=== PATIENT | female | born 1965 | race Caucasian/White ===

== ENCOUNTER → 2019-07-06 15:42 | Outpatient (CLI) | payer OTHER, BC, SELFPAY ==
--- NOTE | ~2019-07-06 | MM_ITS ---
EXAMINATION: MM screening emery BI w mayela HISTORY: Screening mammogram, family history of breast cancer in her mother. TECHNIQUE: Craniocaudal and mediolateral oblique 3-D tomosynthesis images were obtained and synthetic 2-D images were generated. CAD analysis was submitted and interpreted. COMPARISON: 06/03/2018, 10/29/2017, 06/02/2017, 05/15/2017, 05/14/2016, 05/02/2016 BREAST PARENCHYMAL COMPOSITION: There are scattered areas of fibroglandular density. FINDINGS: RIGHT BREAST: There is possible architectural distortion in the subareolar aspect of the right breast . A right breast cyst is again noted which has decreased in size. LEFT BREAST: There is no evidence of suspicious mass, calcification, or architectural distortion to s uggest malignancy. There has been no significant interval change. IMPRESSION: 1. Possible architectural distortion of the right breast. 2. Additional mammographic views and possible breast ultrasound are recommended. BI-RADS Category 0: Incomplete: Needs additional imaging evaluation. Reviewed, dictated and finalized at location A. IMPRESSION: 1. Possible architectural distortion of the right breast. 2. Additional mammographic views and possible breast ultrasound are recommended . BI-RADS Category 0: Incomplete: Needs additional imaging evaluation.
--- NOTE | ~2019-07-06 | DEXA_ITS ---
Bone Density Report Name: Samantha Proctor Age: 54 Sex: Female Ethnicity: White Date of : 1965 Indication: postmenopausal; screening for osteoporosis; height loss; Referring Provider: SAMIR, ALEX Study: Bone densitometry was performed. Exam Date: July 06, 2019 Accession number: [id number] Bone Density: Region BMD T-score Z-score Classification AP Spine (L1-L4) 1.197 1.4 2.4 Normal Femoral Neck (Left) 0.828 -0.2 0.8 Normal Total Hip (Left) 0.995 0.4 1.1 Normal Femoral Neck (Right) 0.787 -0.6 0.4 Normal Total Hip (Right) 0.994 0.4 1.1 Normal Total Hip Mean 0.995 0.4 1.1 Normal World Health Organization criteria for BMD impression classify patients as: Normal (T-score at or above -1.0), Osteopenia (T-score between -1.0 and -2.5), or Osteoporosis (T-score at or below -2.5). 10-year Fracture Risk: FRAX not reported because: All T-scores for Spine Total, Hip Total, Femoral Neck at or above -1.0 Clinical Information Provided by Patient: Has used the following medications: Vitamin D, Calcium Patient maximum height was 67 Menopause Age: 52 No regular weight bearing exercise Does not regularly consume dairy products Drinks caffeinated beverages Onset of menses at age 13 Number of children 1 Impression: The patient has normal bone mass. Discussion: BONE DENSITY IS ABOVE THE MINIMUM DESIRABLE LEVEL AT ALL SKELETAL SITES TESTED. This patient?s bone mineral density is above the minimum desirable level (T-score -1.0 or better) at all sites measured. The patient should follow a healthful lifestyle (good nutrition with adequate calcium and vitamin D, and appropriate weight-bearing exercise). Follow-Up: Consider repeating this study in 5 years or sooner if there is some new clinical indication. Reported by: BHAVNA on 07/06/2019 4:18:00 PM. Reviewed, dictated and finalized at location ARaghavendra GARCES
== END ==
PROVIDERS: PCP Family Medicine; Visit Provider Nurse Practitioner
DX: Z12.31 Encounter for screening mammogram for malignant neoplasm of breast (principal); Z78.0 Asymptomatic menopausal state; R92.8 Other abnormal and inconclusive findings on diagnostic imaging of breast
CPT/HCPCS: 77063; 77067; 77080

== ENCOUNTER 2019-07-22 11:35 | Outpatient (CLI) | payer OTHER, BC, SELFPAY ==
--- NOTE | ~2019-07-22 | MM_ITS ---
EXAMINATION: MM diagnostic mammo unilat RT HISTORY: Possible right breast architectural distortion on screening mammogram TECHNIQUE: Additional 3-D tomosynthesis images of the right breast were performed and synthetic 2-D i mages were generated. CAD analysis was submitted and interpreted. COMPARISON: 07/06/2019, 06/03/2018,05/15/2017 FINDINGS: No architectural distortion is identified with spot compression of the right breast. There is no suspicious mass, calcification, or architectural distortion. IMPRESSION: 1. No mammographic evidence of malignancy. 2. Recommend routine screening mammography in one year. BI-RADS Category 1: Negative Reviewed, dictated and finalized at location A.
== END 2019-07-22 11:36 | disposition home or self-care (01) ==
LOC: ANHIMG 11:38
PROVIDERS: PCP Family Medicine; Visit Provider Obstetrics & Gynecology Gynecology
DX: R92.8 Other abnormal and inconclusive findings on diagnostic imaging of breast (principal)
CPT/HCPCS: 77065

== ENCOUNTER → 2020-09-20 17:27 | Outpatient (CLI) | payer OTHER, BC, SELFPAY ==
--- NOTE | ~2020-09-20 | MM_ITS ---
EXAMINATION: MM screening emery BI w mayela HISTORY: Screening mammogram TECHNIQUE: Craniocaudal and mediolateral oblique 3-D tomosynthesis images were obtained and synthetic 2-D images were generated. CAD analysis was submitted and interpreted. COMPARISON: 07/22/2019 diagnostic right mammogram 07/06/2019, 06/03/2018, 05/15/2017 bilateral digital screening mammogram examinations 10/29/2017 and 06/02/2017 diagnostic left mammogram and limited left breast ultrasound examinations BREAST PARENCHYMAL COMPOSITION: FINDINGS: Right breast: Stable circumscribed approximately 6 mm mass situated posteriorly in the outer mid right breast, not significantly changed since 05/15/2017. Possible new 7.5 mm mass in the lower mid right breast (craniocaudal Tomosynthesis image 17/56). Diag nostic right mammogram and right breast ultrasound examination are recommended. Left breast: There is no evidence of suspicious mass, calcification, or architectural distortion to suggest malig madonna in either breast. There has been no suspicious interval change. IMPRESSION: 1. Possible new 7.5 mm right breast mass 2. Diagnostic right mammogram and right breast ultrasound examination are recommended. BI-RADS Category 0: Incomplete: Needs additional imaging evaluation. Reviewed, dictated and finalized at location A. IMPRESSION: 1. Possible new 7.5 mm right breast mass 2. Diagnostic right mammogram and right breast ultrasound examination are recom mended. BI-RADS Category 0: Incomplete: Needs additional imaging evaluation.
== END ==
PROVIDERS: Visit Provider Nurse Practitioner
DX: Z12.31 Encounter for screening mammogram for malignant neoplasm of breast (principal); R92.8 Other abnormal and inconclusive findings on diagnostic imaging of breast
CPT/HCPCS: 77063; 77067

== ENCOUNTER → 2020-09-29 07:41 | Outpatient (CLI) | payer OTHER, BC, SELFPAY ==
--- NOTE | ~2020-09-29 | MMUS_ITS ---
EXAMINATION: MM diagnostic mammo unilat RT, US breast RT complete HISTORY: Follow-up left breast asymmetry TECHNIQUE: Additional 3-D tomosynthesis images of the left breast were performed and synthetic 2-D im ages were generated. CAD analysis was submitted and interpreted. High resolution complete left breast ultrasound was performed. COMPARISON: 09/20/2020 BREAST PARENCHYMAL COMPOSITION: BREAST PARENCHYMAL COMPOSITION: There are scattered areas of fibroglandular density. FINDINGS: MAMMOGRAPHIC FINDINGS: There is a small mass in the mid outer quadrant of the right breast with central lucency measuring 4 mm. In there is focal nodular asymmetry upper aspect of the right breast anteriorly on spot MLO view, not well seen on CC view. Visualized ULTRASOUND: Right breast ultrasound complete: At 12:00, 4 cm from the nipple, there is a cluster of microcysts me asuring 6 mm aggregate, likely corresponding to the mammographic finding. At 8:00, 5 cm from the nipp le, there is a 4 mm cyst responding to the smaller lesion seen on mammography. No suspicious masses t o suggest malignancy. IMPRESSION: 1. No evidence for malignancy in the right breast. Benign findings. 2. Routine yearly screening mammogram and regular clinical breast examination are recommended. BI-RADS Category 2: Benign finding(s). Reviewed, dictated and finalized at location A. IMPRESSION: 1. No evidence for malignancy in the right breast. Benign findings. 2. Routine yearly screening mammogram and regular clinical breast examination a re recommended. BI-RADS Category 2: Benign finding(s).
== END ==
PROVIDERS: PCP Family Medicine; Visit Provider Obstetrics & Gynecology Gynecology
DX: R92.8 Other abnormal and inconclusive findings on diagnostic imaging of breast (principal)
CPT/HCPCS: 76641; 77065

== ENCOUNTER → 2021-12-25 13:58 | Outpatient (CLI) | payer OTHER, BC, SELFPAY ==
--- NOTE | ~2021-12-25 | MM_ITS ---
EXAMINATION: MM screening emery BI w mayela HISTORY: Screening mammogram TECHNIQUE: Craniocaudal and mediolateral oblique 3-D tomosynthesis images were obtained and synthetic 2-D images were generated. CAD analysis was submitted and interpreted. COMPARISON: 09/29/2020 diagnostic right mammogram and complete right breast ultrasound examination 09/20/2020 bilateral screening mammogram / diagnostic right mammogram /09/2019, 06/03/2018 bilateral screening mammogram BREAST PARENCHYMAL COMPOSITION: There are scattered areas of fibroglandular density. FINDINGS: Stable circumscribed 3.5 mm rounded benign-appearing opacity with halo sign in the posterio r outer mid right breast There is no evidence of suspicious mass, calcification, or architectural dis tortion to suggest malignancy in either breast. There has been no suspicious interval change. IMPRESSION: 1. No mammographic evidence of malignancy. 2. Recommend routine screening mammography in one year. BI-RADS Category 2: Benign finding(s). Reviewed, dictated and finalized at location A.
== END ==
PROVIDERS: PCP Family Medicine; Visit Provider Nurse Practitioner
DX: Z12.31 Encounter for screening mammogram for malignant neoplasm of breast (principal)
CPT/HCPCS: 77063; 77067

== ENCOUNTER → 2022-03-04 13:46 | Outpatient (CLI) | payer OTHER, BC, SELFPAY ==
--- NOTE | ~2022-03-04 | XR_ITS ---
XR shoulder RT min 2V DATE: 03/04/2022 14:07 INDICATION: Right shoulder pain TECHNIQUE: 4 views COMPARISON: None FINDINGS: There is mild degenerative change at the right acromion clavicular joint, with slight infer ior spurring. No fracture or dislocation, periosteal reaction or bone destruction or abnormal soft tissue calcifica tion of the right shoulder is detected. IMPRESSION: Mild degenerative change at right acromioclavicular joint Reviewed, dictated and finalized at location B. NG MACHINE FEEDER
== END ==
PROVIDERS: PCP Family Medicine; Visit Provider Physician Assistant
DX: M19.011 Primary osteoarthritis, right shoulder (principal)
CPT/HCPCS: 73030

== ENCOUNTER 2022-04-05 12:51 | Outpatient (CLI) | payer OTHER, BC, SELFPAY ==
--- NOTE | ~2022-04-05 | XR_ITS ---
EXAMINATION: XR lg joint inject/asp w image DATE: 04/05/2022 13:43 INDICATION: Right shoulder pain. TECHNIQUE: A time-out was performed to verify the patient's name, date of , and procedure to b e performed. The procedure including the risks, benefits, and alternatives was discussed with the pat ient. Risks discussed included bleeding and infection. The patient understood the risks and agreed to proceed. The skin overlying the right glenohumeral joint was prepped and draped in usual sterile fa shion. Anesthetic was administered with 1% lidocaine subcutaneously. A 22 G needle was advanced und er fluoroscopic guidance into the joint. Injection of 1 mL of Omnipaque 240 confirmed intra-articula r position of the needle. Subsequently, injectate consisting of 1 mL 40 mg/mL triamcinolone and 3 mL 1% lidocaine was instilled. The needle was removed and the entry site was cleaned and dressed. The re were no immediate complications. Fluoroscopy exposure time was 0.1 minutes. The total number of im ages was 2. FINDINGS: Real-time fluoroscopy demonstrates the needle in the right glenohumeral joint. Patient's pa in prior to procedure:05/10. Patient's pain following the procedure: 04/09. IMPRESSION: 1. Fluoroscopy guided right glenohumeral joint injection of local anesthetic and steroid with decreas e in the patient's presenting pain. Reviewed, dictated and finalized at location A. ATRIC NP IMPRESSION: 1. Fluoroscopy guided right glenohumeral joint injection of local anesthetic an d steroid with decrease in the patient's presenting pain.
== END 2022-04-05 12:52 | disposition home or self-care (01) ==
PROVIDERS: PCP Family Medicine; Visit Provider Physician Assistant
DX: M25.511 Pain in right shoulder (principal)
CPT/HCPCS: 20610; 77002; J3301; Q9966

== ENCOUNTER 2022-06-01 09:54 | Outpatient (CLI) | payer OTHER, BC, SELFPAY ==
--- NOTE | ~2022-06-01 | MR_ITS ---
EXAMINATION: MR shoulder RT wo con DATE: 06/01/2022 10:35 INDICATION: Right shoulder pain. TECHNIQUE: Magnetic resonance imaging (MRI) of the right shoulder was performed without intravenous c ontrast. Sequences included axial PD-weighted FS FSE, coronal oblique PD-weighted FS FSE and T2-weigh tim FS FSE, and sagittal oblique T2-weighted FS FSE and T1-weighted FSE. COMPARISON: Right shoulder radiographs 03/04/2022 FINDINGS: Coracoacromial arch: The acromion undersurface is flat in morphology (type I). There is severe osteoarthritis of acromiocl avicular joint including inferiorly directed osteophytes. There is mild subacromial/subdeltoid bursit is. Rotator cuff: There is moderate supraspinatus and infraspinatus tendinopathy. Teres minor tendon is normal. There i s mild subscapularis tendinopathy. No tear. There is no fatty atrophy of the rotator cuff muscle house ies. Biceps tendon and glenoid labrum: Biceps tendon is in bicipital groove. Intra-articular biceps tendon is normal. There is degeneration of the glenoid labrum without well-defined tear. Fluid: There is no glenohumeral joint effusion. Bones/cartilage: There is cartilage surface irregularity of glenoid and humeral head. IMPRESSION: 1. Moderate rotator cuff tendinopathy. No tear. 2. Mild glenohumeral joint chondrosis. 3. Severe acromioclavicular joint osteoarthritis. 4. Mild subacromial/subdeltoid bursitis. Reviewed, dictated and finalized at location A. Y LABORATORY TECHNICIAN
== END 2022-06-01 09:55 | disposition home or self-care (01) ==
PROVIDERS: PCP Family Medicine; Visit Provider Physician Assistant
DX: M75.51 Bursitis of right shoulder (principal); M19.011 Primary osteoarthritis, right shoulder
CPT/HCPCS: 73221

== ENCOUNTER 2023-03-10 16:14 | Outpatient (CLI) | payer OTHER, BC, SELFPAY ==
--- NOTE | ~2023-03-10 | MM_ITS ---
EXAMINATION: MM screening emery BI w mayela HISTORY: Screening mammogram, family history of breast cancer in her mother. TECHNIQUE: Craniocaudal and mediolateral oblique 3-D tomosynthesis images were obtained and synthetic 2-D images were generated. CAD analysis was submitted and interpreted. COMPARISON: 12/25/2021, 09/29/2020, 09/20/2020, 07/06/2019 BREAST PARENCHYMAL COMPOSITION:There are scattered areas of fibroglandular density. FINDINGS: No suspicious mass, calcification, or architectural distortion are identified in either parag ast to suggest malignancy. There has been no suspicious interval change. IMPRESSION: No mammographic evidence of malignancy. Recommend routine screening mammography in one year. BI-RADS Category 1: Negative Reviewed, dictated and finalized at location . DESIGN ENGINEER
== END 2023-03-10 16:15 ==
PROVIDERS: PCP Nurse Practitioner; Visit Provider Nurse Practitioner
DX: Z12.31 Encounter for screening mammogram for malignant neoplasm of breast (principal)
CPT/HCPCS: 77063; 77067

== ENCOUNTER 2023-07-31 10:54 | Outpatient (CLI) | payer OTHER, BC, SELFPAY ==
--- NOTE | ~2023-07-31 | DEXA_ITS ---
Bone Density Report Name: YOGESH TRUONG Age: 58 Sex: Female Ethnicity: White Date of : 1965 Indication: postmenopausal; screening for osteoporosis; Referring Provider: SAMIR, ALEX Study: Bone densitometry was performed. Exam Date: July 31, 2023 Accession number: [id number] Bone Density: Region BMD T-score Z-score Classification AP Spine (L1-L4) 1.169 1.1 2.4 Normal Femoral Neck (Left) 0.804 -0.4 0.8 Normal Total Hip (Left) 0.939 0.0 0.8 Normal Femoral Neck (Right) 0.729 -1.1 0.1 Osteopenia Total Hip (Right) 0.933 -0.1 0.8 Normal Total Hip Mean 0.936 -0.1 0.8 Normal World Health Organization criteria for BMD impression classify patients as: Normal (T-score at or above -1.0), Osteopenia (T-score between -1.0 and -2.5), or Osteoporosis (T-score at or below -2.5). 10-year Fracture Risk(1): Major Osteoporotic Fracture 6.5% Hip Fracture 0.4% Reported Risk Factors: [place] (), Neck BMD=0.729, BMI=29.7 (1) FRAX(R) Version 3.08. Fracture probability calculated for an untreated patient. Fracture probability may be lower if the patient has received treatment. Previous Exams: Region Exam Age BMD T-score BMD Change BMD Change Date g/cm2 vs Baseline vs Previous AP Spine(L1-L4) 07/31/2023 58 1.169 1.1 -0.028* -0.028* 07/06/2019 54 1.197 1.4 Total Hip(Left) 07/31/2023 58 0.939 0.0 -0.056* -0.056* 07/06/2019 54 0.995 0.4 Total Hip(Right) 07/31/2023 58 0.933 -0.1 -0.061* -0.061* 07/06/2019 54 0.994 0.4 *Denotes significance at 95% confidence level, LSC for AP Spine = 0.022 g/cm2, LSC for Total Hip = 0.027 g/cm2 Clinical Information Provided by Patient: Has used the following medications: Vitamin D, Calcium Patient maximum height was 67 Menopause Age: 52 No regular weight bearing exercise Drinks caffeinated beverages Onset of menses at age 13 Number of children 1 Impression: The patient has low bone mass, based on the Right Femoral Neck T-score. The patient has an estimated ten-year risk of hip fracture of 0.4% and an estimated ten-year risk of major fracture of 6.5%, based on the WHO FRAX algorithm. The BMD for the AP Spine(L1-L4) decreased, changing by -0.028 since the last DXA exam. The BMD for the Total Hip(Left) decreased, changing by -0.056 since the last DXA exam. The BMD for the Total Hip(Right) decreased, changing by -0.061 since the last
== END 2023-07-31 10:55 ==
PROVIDERS: PCP Family Medicine; Visit Provider Nurse Practitioner
DX: Z78.0 Asymptomatic menopausal state (principal); M85.851 Other specified disorders of bone density and structure, right thigh
CPT/HCPCS: 77080

== ENCOUNTER 2023-10-22 09:03 | Outpatient (CLI) | payer OTHER, BC, SELFPAY ==
[2023-10-22 19:12] LABS: Basophils Percent Auto 0.5 % (0.2-1.2); Eosinophils Absolute Auto 0.1 K/mm3 (0-0.3); Eosinophils Percent Auto 0.7 % (0-4.4); Hematocrit 44.1 % (37.0-47.0); Hemoglobin 14.5 g/dL (12.0-15.0); Immature Granulocyte Absolute 0.02 K/mm3 (0.00-0.031); Immature Granulocyte Percent A 0.3 % (0-0.5); Lymphocytes Absolute Auto 2.16 K/mm3 (0.9-3.2); Lymphocytes Percent Auto 28.8 % (18.3-44.2); Mean Corpuscular HGB Conc 32.9 g/dl (32-36); Mean Corpuscular Hemoglobin 32.2 pg (26-34); Mean Platelet Volume 12.8 fl (7.4-10.4); Monocytes Absolute Auto 0.8 K/mm3 (0.1-0.6); Monocytes Percent Auto 10.8 % (2.6-8.5); Neutrophils Absolute Auto 4.4 K/mm3 (1.3-6.7); Neutrophils Percent Auto 58.9 % (45.5-73.1); Platelet Count Result 209 k/mm3 (150-375); Red Cell Distribution Width 12.1 % (11.5-14.5); White Blood Count 7.5 K/mm3 (4.5-10.0)
[2023-10-22 19:44] LABS: Vitamin D 25 Hydroxy 40.4 ng/mL
[2023-10-22 19:58] LABS: Thyroid Stimulating Hormone Reflex 0.807 uIU/mL (0.465-4.68)
[2023-10-22 20:27] LABS: Alanine Aminotransferase 21 U/L (6-35); Albumin Level 4.5 g/dL (3.5-5.1); Alkaline Phosphatase 86 U/L (38-126); Anion Gap 12 mmol/L (4-12); Aspartate Amino Transferase 41 U/L (14-36); Bilirubin,Total 0.7 mg/dL (0.2-1.3); Blood Urea Nitrogen 16 mg/dL (7-17); Calcium 9.2 mg/dL (8.4-10.2); Carbon Dioxide 26 mmol/L (22-30); Chloride 103 mmol/L (98-107); Cholesterol 201 mg/dL (0-200); Estimated Glomerular Filt Rate > 60; Glucose 105 mg/dL (65-110); HDL Direct 51 mg/dL; Magnesium 2.2 mg/dL (1.6-2.3); Potassium 4.2 mmol/L (3.4-5.0); Sodium 141 mmol/L (137-145); Triglycerides 107 mg/dL (<150)
[2023-10-22 20:39] LABS: LDL Cholesterol Direct 129 mg/dL
== END 2023-10-22 09:04 | disposition home or self-care (01) ==
LOC: ANHBWCLAB 09:06
PROVIDERS: PCP Nurse Practitioner Adult Health; Visit Provider Nurse Practitioner Adult Health
DX: I10 Essential (primary) hypertension (principal); E55.9 Vitamin D deficiency, unspecified
CPT/HCPCS: 36415; 80053; 80061; 82306; 83735; 84443; 85025

== ENCOUNTER 2024-05-12 08:09 | Outpatient (CLI) | payer OTHER, BC, SELFPAY ==
--- NOTE | ~2024-05-12 | CT_ITS ---
EXAMINATION: CT lung screening DATE: 05/12/2024 08:30 INDICATION: Z87.891 - Personal history of nicotine dependence TECHNIQUE: Computed tomography (CT) of the chest was performed without intravenous contrast. Addition al 3D reconstructions utilizing coronal maximum intensity projection (MIP) were performed. Automated exposure control and iterative reconstruction technique were employed. The dose-length product was 12 1.16 mGy-cm. COMPARISON: None FINDINGS: Mild emphysema and mild biapical pleural-parenchymal scarring. Mild bronchiectasis with mild peripher al mucous plugging in peripheral mucous plugging and associated tree-in-bud opacities with a few <4 m m nodules in the right middle lobe and consistent with endobronchial spread of disease. Additional mi ld tree-in-bud opacities in the lingula and peripheral mucous plugging in the right upper lobe. No la rger pulmonary nodules, pulmonary edema or pleural effusion. Heart size is normal. Atherosclerotic co ronary artery calcific location. No pericardial effusion. Calcified right hilar lymph nodes consisten t with old granulomatous disease. IMPRESSION: 1. . Lung-RADS category 2: Benign appearance or behavior. Continue annual screening with noncontrast low-dose chest CT in 12 months. Reviewed, dictated and finalized at location A. ICIAN PRACTICE COORDINATOR IMPRESSION: 1. . Lung-RADS category 2: Benign appearance or behavior. Continue annual scree dick with noncontrast low-dose chest CT in 12 months.
== END 2024-05-12 08:10 | disposition home or self-care (01) ==
LOC: MICIMG 08:11
PROVIDERS: PCP Nurse Practitioner Adult Health; Visit Provider Nurse Practitioner Adult Health
DX: Z12.2 Encounter for screening for malignant neoplasm of respiratory organs (principal); Z87.891 Personal history of nicotine dependence
CPT/HCPCS: 71271

== ENCOUNTER 2024-09-09 14:22 | Outpatient (CLI) | payer OTHER, SELFPAY ==
--- OUTSIDE RECORDS SUMMARY | 2024-09-09 15:05 | XMS_ITS | Referral Summary ---
Author Organization [facility] Building [facility] Address [address] [place] [address] Care Team Providers Care Hydropress Operator Name Role Phone Augusto Michel MD Primary Care Provider [phone] Allergies No known active allergies Medications lisinopril-hydro CHLOROthiazide (ZESTORETIC) 20-25 mg per tablet 09/03/2019 Active vitamin B complex (B COMPLEX-VITAMIN B12 ORAL) Take 1 tablet by mouth daily Active calcium carbonate (Calcium 600) 1,500 mg (600 mg of elemental calcium) tablet Take 600 mg by mouth daily Active piroxicam (FELDENE) 20 mg capsule Take 20 mg by mouth daily Active biotin 1 mg capsule Take by mouth Active Active Problems Problem Noted Date Diagnosed Date Family history of colon cancer 01/07/2023 Encounter for screening colonoscopy 01/07/2023 Social History Tobacco Use Types Packs/Day Years Used Date Smoking Tobacco: Former Cigarettes 1.5 20 1 2 - 2011 Smokeless Tobacco: Never Alcohol Use Standard Drinks/Week Comments Yes 0 (1 standard drink = 0.6 oz pur e alcohol) Comments Unknown Sex and Gender Information Value Date Recorded Sex Assigned at Not on file Legal Sex Female 10:12 AM CLINIC RECEPTIONIST Gender Identity Not on file Sexual Orientation Not on file Last Filed Vital Signs Vital Sign Reading Time Taken Comments Blood Pressure 135/83 09/29/2019 1:29 PM CDT Pulse 71 09/29/2019 1:29 PM CDT Temperature 36.4 C (97.6 F) 09/29/2019 1:29 PM CDT Respiratory Rate - - Oxygen Saturation - - Inhaled Oxygen Concentration - - Weight 87.1 kg (192 lb) 09/29/2019 1:29 PM CDT Height 167.6 cm (5' 6) 09/29/2019 1:29 PM CDT Body Mass Index 30.99 09/29/2019 1:29 PM CDT Plan of Treatment Not on file Insurance [facility] [employer] [facility] Care Teams Hydropress Operator Relationship Specialty Start Date End Date Augusto Michel MD [address] [place] [phone] PCP - General Family Medicine 09/29/19
--- OUTSIDE RECORDS SUMMARY | 2024-09-09 15:05 | XMS_ITS | Clinical Summary ---
Author Organization [facility] Address [address] [address] Phone Care Team Providers Care Station Chief Name Role Phone Jose Vasquez DO Unavailable [phone] Augusto Michel MD Primary Care Provider [phone] Allergies No known active allergies Medications Multiple Vitamin (MULTI-VITAMIN PO) Take 1 Tab by mouth daily. Active other 180 mg by Other route daily. Nexletol - cholesterol pill RX Active Norethin Trev-Eth Estrad-FE (MICROGESTIN 24 FE PO) Take 1 Tab by mouth daily. Active Hawthorne-3 Fatty Acids (FISH OIL) 1200 MG Capsule Take 1,200 mg by mouth daily. Active calcium 600 MG Tablet Take 600 mg by mouth daily. Vit D Active Cholecalciferol (VITAMIN D3) 1000 UNIT Tablet Take 2,000 Units by mouth daily. Active B Complex Vitamins (VITAMIN B COMPLEX PO) Take 1 Tab by mouth daily. Active cyanocobalamin 1000 MCG Tablet Take 1,000 mcg by mouth daily. Active glucosamine-cho ndroitin 500-400 MG Capsule Take 1 Cap by mouth daily. Active lisinopril (PRINIVIL, ZESTRIL) 5 MG Tablet Take 5 mg by mouth every morning. Active Active Problems No known active problems Family History Medical History Relation Name Comments Cancer Brother colon Heart Attack Father Breast Cancer Mother Relation Name Status Comments Brother Father Mother Social History Tobacco Use Types Packs/Day Years Used Date Smoking Tobacco: Former Cigarettes 1.5 30 0 07/20/1981 - 07/21/2011 Smokeless Tobacco: Never Alcohol Use Standard Drinks/Week Comments No 0 (1 standard drink = 0.6 oz pur e alcohol) Comments Unknown Sex and Gender Information Value Date Recorded Sex Assigned at Not on file Legal Sex Female 12:17 AM CDT Gender Identity Not on file Sexual Orientation Not on file Occupation Industry Job Start Date Job End Date [employer] Not on file Not on file Not on file Last Filed Vital Signs Vital Sign Reading Time Taken Comments Blood Pressure 128/75 07/17/2021 8:05 AM CDT Pulse 55 07/17/2021 8:05 AM CDT Temperature 36 C (96.8 F) 07/17/2021 8:05 AM CDT Respiratory Rate 12 07/17/2021 8:05 AM CDT Oxygen Saturation 100% 07/17/2021 8:05 AM CDT Inhaled Oxygen Concentration - - Weight 85.7 kg (189 lb) 06/26/2021 3:00 PM CDT Height 170.2 cm (5' 7) 06/26/2021 3:00 PM CDT Body Mass Index 29.6 06/26/2021 3:00 PM CDT Plan of Treatment Health Maintenance Due Date Last Done Comments Hepatitis C Virus (HCV) Screening 1965 TdaP Immunization 1965 Hepatitis B Immunization (1 of 3 - 19+ 3-dose series) 1984 Cologuard 2010 Immunochemical Fecal Occult Blood 2010 Pneumococcal Immunization (5 0+ years) (1 of 1 - PCV) 06/12/2015 Zoster Immunization (1 of 2) 06/12/2015 SARS-COV-2 Immunization (1 - 2023- season) 2023 Influenza Immunization (Seas on Ended) 2024 Colonoscopy 07/17/2026 07/17/2021, 04/12/2016 Colorectal Cancer Screening 07/17/2026 Respiratory Syncytial Virus (RSV) Immunization (Adult) (1 - 1-dose 75+ series) 2040 DTaP/Tdap/Td Immunization Discontinued 03/31/1998 Human Papillomavirus (HPV) Immunization Aged Out No longer eligible based on patient's age to complete this topic Meningococcal Immunization (ACWY) Aged Out No longer eligible based on patient's age to complete this topic Rotavirus Immunization Aged Out No lo nger eligible based on patient's age to complete this topic Insurance [facility] [employer] Care Teams Station Chief Relationship Specialty Start Date End Date Augusto Michel MD [address] [place] [id number] PCP - General Family Medicine 04/10/16 Jose Vasquez DO Gastroenterology 01/05/16
--- OUTSIDE RECORDS SUMMARY | 2024-09-09 15:05 | XMS_ITS | Clinical Summary ---
Author Organization [facility] Building [address] Address [address] [place] [address] Care Team Providers Care Solid Propellant Processor Name Role Phone Augusto Michel MD Primary Care Provider [phone] Allergies No known active allergies Medications lisinopril-hydro [...] cancer 01/07/2023 Encounter for screening colonoscopy 01/07/2023 Surgical History Surgery Date Site/Laterality Comments TONSILLECTOMY Tonsillectomy KNEE ARTHROSCOPY BREAST BIOPSY 03/31/1991 - 03/30/1992 Medical History Medical History Date Comments Hx Other Medical Left knee 2010 Hx Other Medical Breast Biopsy 1 998 Hypertension Migraines Family History Medical History Relation Name Comments Cancer Other 1 Family history of Cancer, unknown; Seizures Other 2 Family history of Seizure disorder; Relation Name Status Comments Other 1 Other 2 Social History Tobacco Use Types Packs/Day Years Used Date Smoking Tobacco: Former Cigarettes 1.5 20 1 - 2011 Smokeless Tobacco: Never Alcohol Use Standard Drinks/Week Comments Yes 0 (1 standard drink = 0.6 oz pur e alcohol) Comments Unknown Sex and Gender Information Value Date Recorded Sex Assigned at Not on file Legal Sex Female 10:12 AM SIGN ARTIST Gender Identity Not on file Sexual Orientation Not on file Obstetrics History Last Filed Vital Signs Vital Sign Reading [...] Plan of Treatment Not on file Insurance [employer] [facility] Communication Specialist [employer] [place] [employer] [place] Care Teams Solid Propellant Processor Relationship Specialty Start Date End Date Augusto Michel MD [address] [place] [id number] PCP - General Family Medicine 09/29/19
[2024-09-09 20:16] LABS: Add Urine Microscopic? YES; Appearance Urine Clear (Clear); Bacteria Urine None Seen /hpf; Bilirubin Urine Negative (Negative); Blood Urine Negative (Negative); Color Urine Yellow (Yellow); Glucose Urine UA Negative (Negative); Ketones Urine Negative (Negative); Leukocyte Esterase Ur 1+ LEU/UL (Negative); Nitrate Urine Negative (Negative); Non Pathogenic Casts 0-2; Protein Urine Negative (Negative); RBC Urine 0-2 /hpf (0-2); Specific Grav Ur 1.018 (1.001-1.035); Squamous Epithelial Cell Urine Few /hpf (Few); Urobilinogen Urine 0.2 mg/dL (<2.0)
== END 2024-09-09 14:23 | disposition home or self-care (01) ==
LOC: ANHBWCLAB 14:24
PROVIDERS: PCP Nurse Practitioner Adult Health; Visit Provider Nurse Practitioner Adult Health
DX: R39.9 Unspecified symptoms and signs involving the genitourinary system (principal)
CPT/HCPCS: 81001; 87086; 87181

== ENCOUNTER 2024-09-21 13:52 | Outpatient (CLI) | payer OTHER, SELFPAY ==
[2024-09-21 19:32] LABS: Add Urine Microscopic? NO; Appearance Urine Clear (Clear); Bilirubin Urine Negative (Negative); Blood Urine Negative (Negative); Color Urine Yellow (Yellow); Glucose Urine UA Negative (Negative); Ketones Urine Negative (Negative); Leukocyte Esterase Ur Negative LEU/UL (Negative); Nitrate Urine Negative (Negative); Protein Urine Negative (Negative); Specific Grav Ur 1.011 (1.001-1.035); Urobilinogen Urine 0.2 mg/dL (<2.0); pH Urine 5.5 (5.0-9.0)
[2024-09-21 20:50] LABS: Anion Gap 14 mmol/L (4-12); Blood Urea Nitrogen 14 mg/dL (7-17); Calcium 9.6 mg/dL (8.4-10.2); Carbon Dioxide 23 mmol/L (22-30); Chloride 104 mmol/L (98-107); Estimated Glomerular Filt Rate 55; Glucose 133 mg/dL (65-110); Potassium 3.9 mmol/L (3.4-5.0); Sodium 141 mmol/L (137-145)
== END 2024-09-21 13:53 | disposition home or self-care (01) ==
LOC: ANHBWCLAB 13:54
PROVIDERS: PCP Nurse Practitioner Adult Health; Visit Provider Nurse Practitioner Adult Health
DX: R39.9 Unspecified symptoms and signs involving the genitourinary system (principal); R42 Dizziness and giddiness
CPT/HCPCS: 36415; 80048; 81003; 87086

== ENCOUNTER 2024-09-22 10:26 | Outpatient (CLI) | payer OTHER, SELFPAY ==
[2024-09-22 19:38] LABS: Hematocrit 46.6 % (37.0-47.0); Mean Corpuscular HGB Conc 32.2 g/dl (32-36); Mean Corpuscular Hemoglobin 31.6 pg (26-34); Mean Corpuscular Volume 98.1 fl (80-100); Mean Platelet Volume 12.4 fl (7.4-10.4); Platelet Count Result 238 k/mm3 (150-375); Red Blood Count 4.75 M/mm3 (4.2-5.4); Red Cell Distribution Width 12.1 % (11.5-14.5); White Blood Count 10.3 K/mm3 (4.5-10.0)
== END 2024-09-22 10:27 | disposition home or self-care (01) ==
PROVIDERS: PCP Nurse Practitioner Adult Health; Visit Provider Nurse Practitioner Adult Health
DX: D72.829 Elevated white blood cell count, unspecified (principal)
CPT/HCPCS: 36415; 85027

== ENCOUNTER 2024-09-27 10:59 | Outpatient (CLI) | payer OTHER, SELFPAY ==
--- OUTSIDE RECORDS SUMMARY | 2024-09-27 11:38 | XMS_ITS | Referral Summary ---
Author Organization [facility] Medical Office Building B Address [address] [place] [address] Care Team Providers Care Parking Ramp Attendant Name Role Phone Diamante Abraham NP Primary Care Provider [phone] Aga PETERSON MD, Reno Arroyo Unavailable [phone] Encounters Date Type Department Care Team Description 09/10/2024 8:30 AM CDT - 09/13/2024 1:50 PM CDT [place] [address] Miller Damon MD Ogunremi, Olumide Omolulu, MD Rudomiotov, Olga, MD Onaghise, Jude, MD Dizziness (Primary Dx); Vertigo; Nausea and vomiting, unspecified vomiting type Discharge Disposition: Discharge to home or self care 09/10/2024 8:03 AM CDT - 09/10/2024 11:59 PM CDT Hospital Encounter [facility] BILLING Emergency, Room R Discharge Disposition: Discharge to home or self care from Last 3 Months Allergies No known active allergies Medications vitamin B complex (B COMPLEX-VITAMI N B12 ORAL) Take 1 tablet by mouth daily Active calcium carbonate (Calcium 600) 1,500 mg (600 mg of elemental calcium) tablet Take 600 mg by mouth daily Active cyanocobalamin (Vitamin B-12) 500 mcg tabletIndicati ons:Prevention of Vitamin B12 Deficiency Take 1 tablet (500 mcg total) by mouth daily Active ibuprofen 200 mg tab/cap Take 2 tablet/capsul e (400 mg total) by mouth every 6 (six) hours as needed for pain Active ezetimibe (ZETIA) 10 mg tablet Take 1 tablet (10 mg total) by mouth daily Active lisinopriL (PRINIVIL,ZEST RIL) 20 mg tablet Take 1 tablet (20 mg total) by mouth daily Active acetaminophen (TYLENOL) 325 mg tablet Take 2 tablets (650 mg total) by mouth every 6 (six) hours as needed for headaches or fever 30 tablet 09/14/19 25 Active meclizine (ANTIVERT) 25 mg tablet Take 1 tablet (25 mg total) by mouth 3 (three) times a day as needed for dizziness 30 tablet 1 09/14/19 25 Active lisinopril-hyd roCHLOROthiazi de (ZESTORETIC) 20-25 mg per tablet 09/03/19 20 025 Discontinued piroxicam (FELDENE) 20 mg capsule Take 20 mg by mouth daily 025 Discontinued biotin 1 mg capsule Take by mouth 025 Discontinued Active Problems Problem Noted Date Diagnosed Date Dizziness 09/10/2024 Family history of colon cancer 01/07/2023 Encounter for screening colonoscopy 01/07/2023 Social History Tobacco Use Types Packs/Day Years Used Date Smoking Tobacco: Former Cigarettes 1.5 20 1 2011 Smokeless Tobacco: Never Alcohol Use Standard Drinks/Week Comments Yes 0 (1 standard drink = 0.6 oz pur e alcohol) [facility] Utilities Answer Date Recorded In the past 12 months has [employer], gas, oil, or water [employer] threatened to shut off services in your home? No 09/10/2024 Social Connection and Isolation Panel [NHANES] A nswer Date Recorded In a typical week, how many times do you talk on the phone with family, friends, or neighbors? Twice a week 09/10/2024 How often do you get together with friends or re latives? Once a week 09/10/2024 How often do you attend baptist or voodoo serv ices? Never 09/10/2024 Do you belong to any clubs o r organizations such as baptist groups, unions, fraternal or athletic groups, or school groups? No 09/10/2024 How often do you attend meet ings of the clubs or organizations you belong to? Never 09/10/2024 Are you , , di vorced, , never , or living with a partner? 09/10/2024 Overall Financial Resource Strain (CARDIA) Answe r Date Recorded How hard is it for you to pa y for the very basics like food, housing, medical care, and heating? Not hard at all 09/10/2024 Hunger Vital Sign Answer Date Recorded Within the past 12 months, y ou worried that your food would run out before you got the money to buy more. Never true 09/11/19 25 Within the past 12 months, t he food you bought just didn't last and you didn't have money to get more. Never true 09/10/2024 PRAPARE - Transportation Answer Date Re corded In the past 12 months, has l ack of transportation kept you from medical appointments or from getting medications? No 08/29 In the past 12 months, has l ack of transportation kept you from meetings, work, or from getting things needed for daily living? No 09/10/2024 Housing Stability Vital Sign Answer Duong e Recorded In the last 12 months, was t here a time when you were not able to pay the mortgage or rent on time? No 09/10/2024 In the past 12 months, how m any times have you moved where you were living? 0 09/10/2024 At any time in the past 12 m [facility], were you homeless or living in a senior living (including now)? No 09/10/2024 Personal Safety Answer Date Recorded Have you ever been in or are you currently in a harmful physical or emotional relationship or is someone making you feel afraid or unsafe? 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 Gender Identity Not on file Sexual Orientation Not on file Last Filed Vital Signs Vital Sign Reading Time Taken Comments Blood Pressure 149/68 09/13/2024 12:57 PM CDT Pulse 73 09/13/2024 12:57 PM CDT Temperature 36.8 C (98.2 F) 09/13/2024 12:57 PM CDT Respiratory Rate 17 09/13/2024 12:5 7 PM CDT Oxygen Saturation 94% 09/13/2024 12: 57 PM CDT Inhaled Oxygen Concentration - - Weight 89.2 kg (196 lb 10.4 oz) 09/13/2024 6:00 AM CDT Height 170.2 cm (5' 7.01) 09/11/2024 3:57 PM CD T Body Mass Index 30.79 09/11/2024 3:57 PM CDT Plan of Treatment Not on file Procedures Procedure Name Priority Date/Time Associated Diagnosis Comments TRANSTHORACIC ECHO (TTE) COMPLETE W DOPPLER/CF WO CONTRAST Routine 09/13/2024 1:45 PM CDT US CAROTIDS DUPLEX BILATERAL IP Routine 09/13/2024 8:40 AM CDT EGFR Routine 09/13/2024 4:58 AM CDT DIFFERENTIAL AUTO Routine 09/13/2024 4:5 8 AM CDT BASIC METABOLIC PANEL Routine 09/13/2024 4:58 AM CDT CBC WITH AUTO DIFFERENTIAL Routine 09/13/2024 4:58 AM CDT EGFR Routine 09/12/2024 6:08 AM CDT DIFFERENTIAL AUTO Routine 09/12/2024 6:0 8 AM CDT BASIC METABOLIC PANEL Routine 09/12/2024 6:08 AM CDT CBC WITH AUTO DIFFERENTIAL Routine 09/12/2024 6:08 AM CDT MRI BRAIN WO CONTRAST IP Routine 09/11/2024 6:16 PM CDT EGFR Routine 09/11/2024 6:01 AM CDT DIFFERENTIAL AUTO Routine 09/11/2024 6:0 1 AM CDT BASIC METABOLIC PANEL Routine 09/11/2024 6:01 AM CDT CBC WITH AUTO DIFFERENTIAL Routine 09/11/2024 6:01 AM CDT URINALYSIS, MICROSCOPIC ONLY Routine 09/10/2024 9:22 PM CDT URINE CULTURE Routine 09/10/2024 9:22 PM CDT URINALYSIS AND REFLEX TO MICROSCOPIC AND CULTURE Routine 09/10/2024 9:22 PM CDT TROPONIN T HIGH-SENSITIVITY 2-HOUR Timed 09/10/2024 10:[address] HEAD WO CONTRAST ED 09/10/2024 9 :23 AM CDT XR CHEST 1 VIEW ED 09/10/2024 9:01 AM CDT EGFR STAT 09/10/2024 8:46 AM CDT DIFFERENTIAL AUTO STAT 09/10/2024 8:4 6 AM CDT TROPONIN T HIGH-SENSITIVITY SERIES (BASELINE, 2HR, 4HR, 6HR) STAT 09/10/2024 8:46 AM CDT LIPASE STAT 09/10/2024 8:46 AM CDT COMPREHENSIVE METABOLIC PANEL STAT 09/10/2024 8:46 AM CDT CBC WITH AUTO DIFFERENTIAL STAT 09/10/2024 8:46 AM CDT PRO B-TYPE NATRIURETIC PEPTIDE STAT 09/10/2024 8:46 AM CDT ECG 12-LEAD STAT 09/10/2024 8:38 AM CDT from Last 3 Months Results * TRANSTHORACIC ECHO (TTE) COMPLETE W DOPPLER/CF WO CONTRAST (09/13/2024 1:45 PM CDT) EF Mod BP 72 % CONS SCIMAGE Anatomical Region Laterality Modality Ultrasound 09/13/2024 1:23 PM CDT Narrative 09/13/2024 3:[place] [address] Echocardiogram Report Patient Name: YOGESH PROCTOR L : 1965 Study Date: 09/13/2024 1:23:13 PM Gender: F Tech: Location: [id number] Ref Provider: RENNY ROMAN Height(Cm): 170 BSA: 2.03 Weight(Kg): 87 Heart Rate: 59 BP: 123 / 69 Quality: Good Order Provider: RENNY ROMAN PROCEDURES: Echocardiographic Report: Transthoracic echocardiogram with complete 2D, M-Mode, and color Doppler examination. INDICATIONS: HTN. Dizziness. MEASUREMENTS: 2D/MM Value Range Doppler Value Range EF Teich 2D 72.0 percent [ 54.0 - 74.0 ] PEARL Vmax 2.48 cm2 EF Mod BP 72 % [ 54 - 74 ] AV Mean PG 7 mmHg LVIDd 2D 4.36 cm [ 3.80 - 5.20 ] AV Peak Efrain 1.84 m/s [ 1.00 - 1.70 ] LVIDs 2D 3.09 cm [ 2.20 - 3.50 ] AV VTI 38.45 cm LVPWd 2D 0.73 cm [ 0.60 - 0.90 ] LVOT Diam 2.01 cm IVSd 2D 1.04 cm [ 0.60 - 0.90 ] LVOT Peak Efrain 1.35 m/s [ 0.70 - 1.10 ] LA Dimension 2D 3.29 cm [ 2.70 - 3.80 ] LVOT VTI 28.00 cm AoR Diam 2D 3.27 cm [ 2.70 - 3.70 ] SI LVOT 46.2 ml/m2 [ >= 35.0 ] LA Volume Index 25.53 cc/m2 [ 16.00 - 34.00 ] MV E Peak Efrain 0.81 m/s [ 0.60 - 1.30 ] MV A Peak Efrain 0.96 m/s [ 1.00 - 1.20 ] MV Mean PG 1 mmHg MV PHT 81 msec [ 20 - 100 ] MVA PHT 2.73 cm2 MV Decel Time 278 msec [ 104 - 258 ] PV Peak Efrain 1.12 m/s [ 0.40 - 0.80 ] E` 0.13 m/s E/E` 7.52 2D/MM Value Range Doppler Value Range - FINDINGS: Atrial Septum: Normal atrial septum. Left Ventricle: Normal left ventricular size. Normal left ventricular wall thickness. Hyperdynamic left ventricular function. No focal wall motion abnormalities. Impaired diastolic relaxation Grade I. Ejection fraction is measured at 72 %. Left Atrium: The left atrium is normal in size. Right Ventricle: Normal right ventricular size. Normal right ventricular systolic function. Right Atrium: The right atrium is normal in size. Aortic Valve: Normal structure of the aortic valve. No evidence of hemodynamically significant aortic stenosis by Doppler. Mitral Valve: Normal structure of the mitral valve. Trivial regurgitation of the mitral valve. Pulmonic Valve: Normal structure of the pulmonic valve. No evidence of pulmonic regurgitation. Tricuspid Valve: Normal structure of the tricuspid valve. Normal right ventricular systolic pressure. Trivial regurgitation in the tricuspid valve. Pericardium: Normal pericardium with no significant pericardial effusion. Aorta: Normal aortic root. Ascending aorta is normal. Aortic arch is normal. Descending aorta is normal. No aortic root dilation. IVC: Normal size and normal respiratory collapse consistent with normal right atrial pressure (<5 mmHg). Pulmonary Artery: Pulmonary artery not well visualized. CONCLUSIONS: Normal left ventricular size. Normal left ventricular wall thickness. Hyperdynamic left ventricular function. No focal wall motion abnormalities. Impaired diastolic relaxation Grade I. Ejection fraction is measured at 72 %. Normal right ventricular size. Normal right ventricular systolic function. Normal structure of the mitral valve. Trivial regurgitation of the mitral valve. Normal structure of the aortic valve. No evidence of hemodynamically significant aortic stenosis by Doppler. Normal structure of the tricuspid valve. Normal right ventricular systolic pressure. Trivial regurgitation in the tricuspid valve. Normal pericardium with no significant pericardial effusion. Electronically Signed By: Sarah Reza MD 09/13/2024 3:21:17 PM CDT Procedure Note Sarah Reza MD - 09/13/2024 [place] [address] Echocardiogram Report Patient Name: YOGESH PROCTOR L : 1965 Study Date: 09/13/2024 1:23:13 PM Gender: F Tech: Location: [place] [address] Ref Provider: RENNY ROMAN Height(Cm): 170 BSA: 2.03 Weight(Kg): 87 Heart Rate: 59 BP: 123 / 69 Quality: Good Order Provider: RENNY ROMAN PROCEDURES: Echocardiographic Report: Transthoracic echocardiogram with complete 2D, M-Mode, and color Dopplerexamination. INDICATIONS: HTN. Dizziness. MEASUREMENTS: 2D/MM Value Range DopplerValue Range EF Teich 2D 72.0 percent [ 54.0 - 74.0 ] PERAL Vmax2.48 cm2 EF Mod BP 72 % [ 54 - 74 ] AV Mean PG 7mmHg LVIDd 2D 4.36 cm [ 3.80 - 5.20 ] AV Peak Vel1.84 m/s [ 1.00 - 1.70 ] LVIDs 2D 3.09 cm [ 2.20 - 3.50 ] AV VTI38.45 cm LVPWd 2D 0.73 cm [ 0.60 - 0.90 ] LVOT Diam2.01 cm IVSd 2D 1.04 cm [ 0.60 - 0.90 ] LVOT Peak Vel1.35 m/s [ 0.70 - 1.10 ] LA Dimension 2D 3.29 cm [ 2.70 - 3.80 ] LVOT VTI28.00 cm AoR Diam 2D 3.27 cm [ 2.70 - 3.70 ] SI LVOT46.2 ml/m2 [ >= 35.0 ] LA Volume Index 25.53 cc/m2 [ 16.00 - 34.00 ] MV E Peak Vel0.81 m/s [ 0.60 - 1.30 ] MV A Peak Efrain 0.96 m/s [ 1.00 - 1.20 ] MV Mean PG 1 mmHg MV PHT 81 msec [ 20 - 100 ] MVA PHT 2.73 cm2 MV Decel Time 278 msec [ 104 - 258 ] PV Peak Efrain 1.12 m/s [ 0.40 - 0.80 ] E` 0.13 m/s E/E` 7.52 2D/MM Value Range DopplerValue Range - FINDINGS: Atrial Septum: Normal atrial septum. Left Ventricle: Normal left ventricular size. Normal left ventricular wall thickness.Hyperdynamic left ventricular function. No focal wall motion abnormalities. Impaireddiastolic relaxation Grade I. Ejection fraction is measured at 72 %. Left Atrium: The left atrium is normal in size. Right Ventricle: Normal right ventricular size. Normal right ventricular systolicfunction. Right Atrium: The right atrium is normal in size. Aortic Valve: Normal structure of the aortic valve. No evidence of hemodynamicallysignificant aortic stenosis by Doppler. Mitral Valve: Normal structure of the mitral valve. Trivial regurgitation of the mitralvalve. Pulmonic Valve: Normal structure of the pulmonic valve. No evidence of pulmonicregurgitation. Tricuspid Valve: Normal structure of the tricuspid valve. Normal right ventricular systolicpressure. Trivial regurgitation in the tricuspid valve. Pericardium: Normal pericardium with no significant pericardial effusion. Aorta: Normal aortic root. Ascending aorta is normal. Aortic arch is normal.Descending aorta is normal. No aortic root dilation. IVC: Normal size and normal respiratory collapse consistent with normal rightatrial pressure (<5 mmHg). Pulmonary Artery: Pulmonary artery not well visualized. CONCLUSIONS: Normal left ventricular size. Normal left ventricular wall thickness.Hyperdynamic left ventricular function. No focal wall motion abnormalities. Impaireddiastolic relaxation Grade I. Ejection fraction is measured at 72 %. Normal right ventricular size. Normal right ventricular systolicfunction. Normal structure of the mitral valve. Trivial regurgitation of the mitralvalve. Normal structure of the aortic valve. No evidence of hemodynamicallysignificant aortic stenosis by Doppler. Normal structure of the tricuspid valve. Normal right ventricular systolicpressure. Trivial regurgitation in the tricuspid valve. Normal pericardium with no significant pericardial effusion. Electronically Signed By: Sarah Reza MD 09/13/2024 3:21:17 PM CDT Renny Roman NP CV ECHO PROCEDURES Final Result * US Carotids Duplex Bilateral (09/13/2024 8:40 AM CDT) Anatomical Region Laterality Modality Vascular Bilateral Ultrasound 09/13/2024 11:2 2 AM CDT Impressions 09/13/2024 11:22 AM CDT There is less than 50% stenosis noted in the right and the left internal carotid arteries. Electronically signed by: Олег Juarez M.D. Narrative 09/13/2024 11:22 AM CDT EXAMINATION: US CAROTIDS DUPLEX BILATERAL HISTORY: The patient is a 59-year-old female who presents with hyperlipidemia and dizziness. TECHNIQUE: Bilateral carotid artery duplex ultrasound examination was performed with shepherd scale imaging, color Doppler imaging and spectral waveform analysis. Nascet criteria was utilized. FINDINGS: Right side: Plaque morphology: There is smooth, homogenous plaque noted in the carotid bulb with flecks of calcification within it. Peak systolic velocity in the right CCA is 84 cm/s, in the distal ICA is 96/30 cm/s and in the ECA is 103 cm/s with an ICA/CCA ratio of 1.14. Normal antegrade flow noted in the right vertebral artery. Left side: Plaque morphology: There is smooth, homogenous plaque noted in the carotid bulb and proximal ICA. Peak systolic velocity in the left CCA is 90 cm/s, in the distal ICA is 120/39 cm/s and the ECA is 100 cm/s with an ICA/CCA ratio of 1.33. Normal antegrade flow noted in the left vertebral artery. Procedure Note Олег Juarez MD - 09/13/2024 EXAMINATION: US CAROTIDS DUPLEX BILATERAL HISTORY: The patient is a 59-year-old female who presents with hyperlipidemia and dizziness. TECHNIQUE: Bilateral carotid artery duplex ultrasound examination was performed with shepherd scale imaging, color Doppler imaging and spectral waveform analysis. Nascet criteria was utilized. FINDINGS: Right side: Plaque morphology: There is smooth, homogenous plaque noted in the carotid bulb with flecks of calcification within it. Peak systolic velocity in the right CCA is 84 cm/s, in the distal ICA is 96/30 cm/s and in the ECA is 103 cm/s with an ICA/CCA ratio of 1.14. Normal antegrade flow noted in the right vertebral artery. Left side: Plaque morphology: There is smooth, homogenous plaque noted in the carotid bulb and proximal ICA. Peak systolic velocity in the left CCA is 90 cm/s, in the distal ICA is 120/39 cm/s and the ECA is 100 cm/s with an ICA/CCA ratio of 1.33. Normal antegrade flow noted in the left vertebral artery. IMPRESSION: There is less than 50% stenosis noted in the right and the left internal carotid arteries. Electronically signed by: Олег Juarez M.D. Renny Roman FIRE TENDER IMG US PROCEDURES F inal Result * eGFR (09/13/2024 4:58 AM CDT) eGFR >90 >=60 mL/min/1. 73 m2 Comment: Interpretive Data Reference Interval Normal >/= 90 mL/min/1.73m2 Mildly decreased* 60 - 89 mL/min/1.73m2 Mildly to moderately decreased 45 - 59 mL/min/1.73m2 Moderately to severely decreased 30 - 44 mL/min/1.73m2 Severely decreased 15 - 29 mL/min/1.73m2 Kidney Failure < 15 mL/min/1.73m2 *Relative to young adult level Estimated glomerular filtration rate is determined by the 2020 CKD-EPI equation recommended by the National Kidney Foundation (A Unifying Approach to GFR Estimation: Recommendations of the NKF-ASK Task Force on Reassessing the Inclusion of Race in Diagnosing Kidney Disease, JASN 2020). The CKD-EPI equation should not be used for patients with unstable renal function and has not been validated in children and those over 70. Current interpretive data was last reviewed 2021. Blood 09/13/2024 4:58 AM CDT 09/13/2024 5:38 AM CDT us Belle Saurabh Cordova NP LAB BLOOD ORDERABLES Final Result [facility]IA [id number] [address] Department [place] [address] * (ABNORMAL) Differential, auto (09/13/2024 4:58 AM CDT) Neutrophil abs 4.31 1.50 - 6.50 K/cumm Imm gran abs 0.02 0.00 - 0.10 K/cumm [facility] Lymphocyte abs 2.50 0.80 - 3.30 K/cumm [facility] Monocyte abs 0.81(H) 0.20 - 0.80 K/cumm [facility] Eosinophil abs 0.12 0.00 - 0.50 K/cumm [facility] Basophil abs 0.05 0.00 - 0.10 K/cumm [facility] Neutrophil pct 55.2 % [facility] Comment: Interpretive Data Percent cell count reference ranges are not reported, since discordance with absolute values may lead to misinterpretation of CBC data. Current Interpretive Data was last revised on 2017. Imm gran pct 0.3 % [facility] Comment: Interpretive Data Percent cell count reference ranges are not reported, since discordance with absolute values may lead to misinterpretation of CBC data. Current Interpretive Data was last revised on 2017. Lymphocyte pct 32.0 % [facility] Comment: Interpretive Data Percent cell count reference ranges are not reported, since discordance with absolute values may lead to misinterpretation of CBC data. Current Interpretive Data was last revised on 2017. Monocyte pct 10.4 % [facility] Comment: Interpretive Data Percent cell count reference ranges are not reported, since discordance with absolute values may lead to misinterpretation of CBC data. Current Interpretive Data was last revised on 2017. Eosinophil pct 1.5 % [facility] Comment: Interpretive Data Percent cell count reference ranges are not reported, since discordance with absolute values may lead to misinterpretation of CBC data. Current Interpretive Data was last revised on 2017. Basophil pct 0.6 % [facility] Comment: Interpretive Data Percent cell count reference ranges are not reported, since discordance with absolute values may lead to misinterpretation of CBC data. Current Interpretive Data was last revised on 2017. Blood 09/13/2024 4:58 AM CDT 09/13/2024 5:39 AM CDT Belle Wiley Tasha LEE LAB BLOOD ORDERABLES Final Result Performing Organization Address City/[facility] [address]/ZIP Co de Phone Number MARIA DAN [id number] Markus Department [employer] [place] [address] * CBC with auto differential (09/13/2024 4:58 AM CDT) WBC 7.81 3.80 - 9.90 K/cumm Hgb 12.8 11.9 - 15.5 g/dL [facility] Hct 38.8 35.6 - 45.5 % [facility] Plt 210 150 - 400 K/cumm [facility] MPV 12.1 9.1 - 12.3 fL [facility] RBC 4.08 3.90 - 5.20 M/cumm [facility] MCV 95.1 81.3 - 96.4 fL [facility] MCH 31.4 27.1 - 33.3 pg [facility] MCHC 33.0 32.3 - 35.7 g/dL [facility] RDW CV 11.9 11.1 - 14.9 % [facility] RDW SD 41.3 35.7 - 48.1 fL [facility] NRBC abs 0.00 0.00 - 0.01 K/cumm [facility] Blood 09/13/2024 4:58 AM CDT 09/13/2024 5:39 AM CDT Belle Wiley Tasha FIRE TENDER LAB BLOOD ORDERABLES Final Result Performing Organization Address City/[facility] [address]/ZIP Co de Phone Number MARIA DAN [phone] [address] Department [place] [employer] [address] * Basic metabolic panel (09/13/2024 4:58 AM CDT) Sodium 143 135 - 145 mmol/L Potassium, pl 3.6 3.3 - 4.9 mmol/L [facility] Chloride 108 97 - 110 mmol/L [facility] CO2 23 22 - 32 mmol/L [facility] Anion gap 12 2 - 15 mmol/L [facility] BUN 10 6 - 25 mg/dL [facility] Creatinine 0.71 0.60 - 1.10 mg/dL [facility] Glucose 100 70 - 199 mg/dL [facility] Comment: Interpretive Data Fasting glucose >/= 126 mg/dl is diagnostic for diabetes. Fasting is defined as no caloric intake for at least 8 hours. Fasting glucose between 100 mg/dl to 125 mg/dl is diagnostic of prediabetes. In a patient with classic symptoms of hyperglycemia or hyperglycemic crisis, a random glucose >/= 200 mg/dl is diagnostic for diabetes. In the absence of unequivocal hyperglycemia, results should be confirmed by repeat testing. The classification and Diagnosis of Diabetes Diabetes Care 2021; 46: S19-S40. Current interpretive data was last revised 2022. Calcium 8.8 8.5 - 10.3 mg/dL [facility] Blood 09/13/2024 4:58 AM CDT 09/13/2024 5:38 AM CDT Belle Cordova NP LAB BLOOD ORDERABLES Final Result [facility] [id number] [address] Department [place] [address] * eGFR (09/12/2024 6:08 AM CDT) Pathologist [facility] eGFR >90 >=60 mL/min/1. 73 m2 Comment: Interpretive Data Reference Interval Normal >/= 90 mL/min/1.73m2 Mildly decreased* 60 - 89 mL/min/1.73m2 Mildly to moderately decreased 45 - 59 mL/min/1.73m2 Moderately to severely decreased 30 - 44 mL/min/1.73m2 Severely decreased 15 - 29 mL/min/1.73m2 Kidney Failure < 15 mL/min/1.73m2 *Relative to young adult level Estimated glomerular filtration rate is determined by the 2020 CKD-EPI equation recommended by the National Kidney Foundation (A Unifying Approach to GFR Estimation: Recommendations of the NKF-ASK Task Force on Reassessing the Inclusion of Race in Diagnosing Kidney Disease, JASN 202). The CKD-EPI equation should not be used for patients with unstable renal function and has not been validated in children and those over 70. Current interpretive data was last reviewed 2021. Blood 09/12/2024 6:08 AM CDT 09/12/2024 6:34 AM CDT us Belle Cordova NP LAB BLOOD ORDERABLES Final Result [facility] [id number] [address] Department [place] [address] * (ABNORMAL) Differential, auto (09/12/2024 6:08 AM CDT) Neutrophil abs 4.63 1.50 - 6.50 K/cumm Imm gran abs 0.02 0.00 - 0.10 K/cumm [facility] Lymphocyte abs 2.54 0.80 - 3.30 K/cumm [facility] Monocyte abs 0.81(H) 0.20 - 0.80 K/cumm [facility] Eosinophil abs 0.08 0.00 - 0.50 K/cumm [facility] Basophil abs 0.06 0.00 - 0.10 K/cumm [facility] Neutrophil pct 56.9 % [facility] Comment: Interpretive Data Percent cell count reference ranges are not reported, since discordance with absolute values may lead to misinterpretation of CBC data. Current Interpretive Data was last revised on 2017. Imm gran pct 0.2 % [facility] Comment: Interpretive Data Percent cell count reference ranges are not reported, since discordance with absolute values may lead to misinterpretation of CBC data. Current Interpretive Data was last revised on 2017. Lymphocyte pct 31.2 % [facility] Comment: Interpretive Data Percent cell count reference ranges are not reported, since discordance with absolute values may lead to misinterpretation of CBC data. Current Interpretive Data was last revised on 2017. Monocyte pct 10.0 % [facility] Comment: Interpretive Data Percent cell count reference ranges are not reported, since discordance with absolute values may lead to misinterpretation of CBC data. Current Interpretive Data was last revised on 2017. Eosinophil pct 1.0 % [facility] Comment: Interpretive Data Percent cell count reference ranges are not reported, since discordance with absolute values may lead to misinterpretation of CBC data. Current Interpretive Data was last revised on 2017. Basophil pct 0.7 % [facility] Comment: Interpretive Data Percent cell count reference ranges are not reported, since discordance with absolute values may lead to misinterpretation of CBC data. Current Interpretive Data was last revised on 2017. Blood 09/12/2024 6:08 AM CDT 09/12/2024 6:35 AM CDT Belle Cordova NP LAB BLOOD ORDERABLES Final Result [facility] [id number] [place] [address] * CBC with auto differential (09/12/2024 6:08 AM CDT) WBC 8.14 3.80 - 9.90 K/cumm Hgb 12.7 11.9 - 15.5 g/dL [facility] Hct 37.9 35.6 - 45.5 % [facility] Plt 210 150 - 400 K/cumm [facility] MPV 12.1 9.1 - 12.3 fL [facility] RBC 3.99 3.90 - 5.20 M/cumm [facility] MCV 95.0 81.3 - 96.4 fL [facility] MCH 31.8 27.1 - 33.3 pg [facility] MCHC 33.5 32.3 - 35.7 g/dL [facility] RDW CV 12.0 11.1 - 14.9 % [facility] RDW SD 42.1 35.7 - 48.1 fL [facility] NRBC abs 0.00 0.00 - 0.01 K/cumm [facility] Blood 09/12/2024 6:08 AM CDT 09/12/2024 6:35 AM CDT Belle Cordova NP LAB BLOOD ORDERABLES Final Result [facility] D[facility] [id number] [place] [address] * (ABNORMAL) Basic metabolic panel (09/12/2024 6:08 AM CDT) Sodium 143 135 - 145 mmol/L Potassium, pl 3.6 3.3 - 4.9 mmol/L [facility] Chloride 111(H) 97 - 110 mmol/L [facility] CO2 21(L) 22 - 32 mmol/L [facility] Anion gap 11 2 - 15 mmol/L [facility] BUN 8 6 - 25 mg/dL [facility] Creatinine 0.66 0.60 - 1.10 mg/dL [facility] Glucose 98 70 - 199 mg/dL [facility] Comment: Interpretive Data Fasting glucose >/= 126 mg/dl is diagnostic for diabetes. Fasting is defined as no caloric intake for at least 8 hours. Fasting glucose between 100 mg/dl to 125 mg/dl is diagnostic of prediabetes. In a patient with classic symptoms of hyperglycemia or hyperglycemic crisis, a random glucose >/= 200 mg/dl is diagnostic for diabetes. In the absence of unequivocal hyperglycemia, results should be confirmed by repeat testing. The classification and Diagnosis of Diabetes Diabetes Care 2021; 46: S19-S40. Current interpretive data was last revised 2022. Calcium 8.5 8.5 - 10.3 mg/dL [facility] Blood 09/12/2024 6:08 AM CDT 09/12/2024 6:34 AM CDT Belle Cordova NP LAB BLOOD ORDERABLES Final Result Performing Organization Address [facility] [address]/ZIP Co de Phone Number MARIA DAN [id number] Department [place] [address] * MRI Brain WO Contrast (09/11/2024 6:16 PM CDT) Anatomical Region Laterality Modality Head and Neck N/A Magnetic Resonan ce 09/12/2024 3:50 PM CDT Impressions 09/12/2024 3:50 PM CDT 1. No acute intracranial abnormality. 2. Scattered, multi punctate frontal lobe predominant T2 hyperintensities are nonspecific. Electronically signed by: Zachary Mao M.D. Narrative 09/12/2024 3:50 PM CDT EXAMINATION: Magnetic resonance imaging (MRI) of the brain and brainstem without contrast HISTORY: Vertigo. Evaluate for stroke. TECHNIQUE: Multiplanar multi-weighted MRI of the brain and brainstem was performed without intravenous contrast using the general brain protocol. COMPARISON: 09/10/[address] FINDINGS: There are scattered, right frontal predominant punctate T2 hyperintensities which are nonspecific but can be seen in the setting of small vessel disease or possibly migraine headaches. The scalp and calvarium are normal. The superior sagittal sinus demonstrates normal venous flow. The corpus callosum is normal in shape and signal intensity. The posterior fossa is unremarkable. The pituitary and sella are normal. The brainstem and craniocervical junction are unremarkable. Diffusion weighted images reveal no hyperintensities to suggest acute cerebral infarction. The susceptibility weighted sequences reveal no evidence of acute or chronic hemorrhage. The ventricles are normal in size and position without evidence of hydrocephalus . The paranasal sinuses are normal. The visualized portions of the mastoids are unremarkable. The orbits appear normal. Normal flow voids are demonstrated in the carotid arteries and basilar artery. Procedure Note Zachary Mao III, MD PhD - 09/12/2024 EXAMINATION: Magnetic resonance imaging (MRI) of the brain and brainstem without contrast HISTORY: Vertigo. Evaluate for stroke. TECHNIQUE: Multiplanar multi-weighted MRI of the brain and brainstem was performed without intravenous contrast using the general brain protocol. COMPARISON: 09/10/[address] FINDINGS: There are scattered, right frontal predominant punctate T2 hyperintensities which are nonspecific but can be seen in the setting of small vessel disease or possibly migraine headaches. The scalp and calvarium are normal. The superior sagittal sinus demonstrates normal venous flow. The corpus callosum is normal in shape and signal intensity. The posterior fossa is unremarkable. The pituitary and sella are normal. The brainstem and craniocervical junction are unremarkable. Diffusion weighted images reveal no hyperintensities to suggest acute cerebral infarction. The susceptibility weighted sequences reveal no evidence of acute or chronic hemorrhage. The ventricles are normal in size and position without evidence of hydrocephalus . The paranasal sinuses are normal. The visualized portions of the mastoids are unremarkable. The orbits appear normal. Normal flow voids are demonstrated in the carotid arteries and basilar artery. IMPRESSION: 1. No acute intracranial abnormality. 2. Scattered, multi punctate frontal lobe predominant T2 hyperintensities are nonspecific. Electronically signed by: Zachary Mao M.D. Reno Yung II, MD IMG MRI PROCEDURES Final Res ult * eGFR (09/11/2024 6:01 AM CDT) eGFR >90 >=60 mL/min/1. 73 m2 Comment: Interpretive Data Reference Interval Normal >/= 90 mL/min/1.73m2 Mildly decreased* 60 - 89 mL/min/1.73m2 Mildly to moderately decreased 45 - 59 mL/min/1.73m2 Moderately to severely decreased 30 - 44 mL/min/1.73m2 Severely decreased 15 - 29 mL/min/1.73m2 Kidney Failure < 15 mL/min/1.73m2 *Relative to young adult level Estimated glomerular filtration rate is determined by the 2020 CKD-EPI equation recommended by the National Kid[employer] (A Unifying Approach to GFR Estimation: Recommendations of the NKF-ASK Task Force on Reassessing the Inclusion of Race in Diagnosing Kidney Disease, JASN 202). The CKD-EPI equation should not be used for patients with unstable renal function and has not been validated in children and those over 70. Current interpretive data was last reviewed 2021. Blood 09/11/2024 6:01 AM CDT 09/11/2024 6:31 AM CDT Belle Cordova NP LAB BLOOD ORDERABLES Final Result [facility] [id number] Department [place] [address] * (ABNORMAL) Differential, auto (09/11/2024 6:01 AM CDT) Neutrophil abs 7.63(H) 1.50 - 6.50 K/cumm Imm gran abs 0.04 0.00 - 0.10 K/cumm [facility] Lymphocyte abs 2.40 0.80 - 3.30 K/cumm [facility] Monocyte abs 0.91(H) 0.20 - 0.80 K/cumm [facility] Eosinophil abs 0.06 0.00 - 0.50 K/cumm [facility] Basophil abs 0.04 0.00 - 0.10 K/cumm [facility] Neutrophil pct 68.8 % [facility] Comment: Interpretive Data Percent cell count reference ranges are not reported, since discordance with absolute values may lead to misinterpretation of CBC data. Current Interpretive Data was last revised on 2017. Imm gran pct 0.4 % [facility] Comment: Interpretive Data Percent cell count reference ranges are not reported, since discordance with absolute values may lead to misinterpretation of CBC data. Current Interpretive Data was last revised on 2017. Lymphocyte pct 21.7 % [facility] Comment: Interpretive Data Percent cell count reference ranges are not reported, since discordance with absolute values may lead to misinterpretation of CBC data. Current Interpretive Data was last revised on 2017. Monocyte pct 8.2 % [facility] Comment: Interpretive Data Percent cell count reference ranges are not reported, since discordance with absolute values may lead to misinterpretation of CBC data. Current Interpretive Data was last revised on 2017. Eosinophil pct 0.5 % [facility] Comment: Interpretive Data Percent cell count reference ranges are not reported, since discordance with absolute values may lead to misinterpretation of CBC data. Current Interpretive Data was last revised on 2017. Basophil pct 0.4 % [facility] Comment: Interpretive Data Percent cell count reference ranges are not reported, since discordance with absolute values may lead to misinterpretation of CBC data. Current Interpretive Data was last revised on 2017. Blood 09/11/2024 6:01 AM CDT 09/11/2024 6:31 AM CDT Belle Lopezciara Cordova NP LAB BLOOD ORDERABLES Final Result [facility] [address] Department [place] [address] * (ABNORMAL) CBC with auto differential (09/11/2024 6:01 AM CDT) WBC 11.08(H) 3.80 - 9.90 K/cumm Hgb 13.0 11.9 - 15.5 g/dL [facility] Hct 38.9 35.6 - 45.5 % [facility] Plt 208 150 - 400 K/cumm [facility] MPV 12.0 9.1 - 12.3 fL [facility] RBC 4.10 3.90 - 5.20 M/cumm [facility] MCV 94.9 81.3 - 96.4 fL [facility] MCH 31.7 27.1 - 33.3 pg [facility] MCHC 33.4 32.3 - 35.7 g/dL [facility] RDW CV 12.0 11.1 - 14.9 % [facility] RDW SD 42.1 35.7 - 48.1 fL [facility] NRBC abs 0.00 0.00 - 0.01 K/cumm [facility] Blood 09/11/2024 6:01 AM CDT 09/11/2024 6:31 AM CDT Belle Wiley Tasha LEE LAB BLOOD ORDERABLES Final Result [facility] [address] Department [place] [address] * (ABNORMAL) Basic metabolic panel (09/11/2024 6:01 AM CDT) Sodium 142 135 - 145 mmol/L Potassium, pl 3.5 3.3 - 4.9 mmol/L [facility] Chloride 110 97 - 110 mmol/L [facility] CO2 21(L) 22 - 32 mmol/L [facility] Anion gap 11 2 - 15 mmol/L [facility] BUN 8 6 - 25 mg/dL [facility] Creatinine 0.64 0.60 - 1.10 mg/dL [facility] Glucose 96 70 - 199 mg/dL [facility] Comment: Interpretive Data Fasting glucose >/= 126 mg/dl is diagnostic for diabetes. Fasting is defined as no caloric intake for at least 8 hours. Fasting glucose between 100 mg/dl to 125 mg/dl is diagnostic of prediabetes. In a patient with classic symptoms of hyperglycemia or hyperglycemic crisis, a random glucose >/= 200 mg/dl is diagnostic for diabetes. In the absence of unequivocal hyperglycemia, results should be confirmed by repeat testing. The classification and Diagnosis of Diabetes Diabetes Care 2021; 46: S19-S40. Current interpretive data was last revised 2022. Calcium 8.5 8.5 - 10.3 mg/dL [facility] Blood 09/11/2024 6:01 AM CDT 09/11/2024 6:31 AM CDT Belle Cordova NP LAB BLOOD ORDERABLES Final Result [facility] [address] Department [place] [address] * (ABNORMAL) Urinalysis reflex to microscopic and culture Urine (09/10/2024 9:22 PM CDT) Color, ur Yellow Yellow Clarity, ur Clear Clear [facility] Specific gravity, ur 1.017 1.003 - 1.030 [facility] pH, urine 6.0 [facility] Comment: Interpretive Data U rine pH is affected by diet, medications, systemic acid-base disturbances, and renal tubular function. pH may affect urinary stone formation. For example, urine pH below 6.0 may help reduce the tendency for calcium phosphate stones and pH greater than 6.0 may reduce the tendency for uric acid stone formation. Source: [facility] Current Interpretive Data was last revised on 2017 Protein, ur ql Negative Negative [facility] Glucose, ur ql Negative Negative [facility] Ketones, ur 1+(A) Negative [facility] Bilirubin, ur Negative Negative [facility] Blood, ur Negative Negative [facility] Urobilinogen, ur <2.0 <2.0 mg/dL [facility] Nitrite, ur Negative Negative [facility] Leukocyte esterase, ur 3+(A) Negative [facility] UA reflex comment Reflex to microscopic UA will be performed. [facility] Urine 09/10/2024 9:22 PM CDT 09/10/2024 9:34 PM CDT [facility] Saurabh Maresciara LAB MICROBIOLOGY - G ENERAL ORDERABLES Final Result Performing Organization Address [facility] [address]/[facility] Co de Phone Number MARIA DAN [id number] Department of Laboratories [place], [place] [id number] * (ABNORMAL) Urinalysis, microscopic only (09/10/2024 9:22 PM CDT) WBC, ur 11-20(A) 0 - 5 /HPF RBC, ur 0-2 0 - 2 /HPF [facility] Epithelial cells, squamous, ur 1-5 0 - 5 /HPF [facility] Mucous, ur Present(A) [facility] Hyaline casts, ur 1-5 0 - 10 /LPF [facility] Culture Reflex Comment Reflex to urine culture will be performed. [facility] Urine 09/10/2024 9:22 PM CDT 09/10/2024 9:35 PM CDT [facility] URINE ORDERABLES Final Result Performing Organization Address [facility] [address]/[facility] Co de Phone Number MARIA DAN [address] Department of Laboratories [place], [place] [id number] * Urine culture Urine (09/10/2024 9:22 PM CDT) Report Final Report: Less than 100,000 colonies/mL (clinically insignificant growth based on current clinical standards) Comment:Testing performed by : [facility], [address] [facility], [place]., [address] Organism (CLINICALLY INSIGNIFICANT GROWTH [facility] Urine 09/10/2024 9:22 PM CDT 09/11/2024 12:56 AM CDT Narrative [facility] - 09/12/2024 6:38 AM CDT Urine culture reflexed based upon urinalysis results. Testing performed by [facility] ([phone]) Result [facility] Belle Cordova NP LAB MICROBIOLOGY - G ENERAL ORDERABLES Final Result Performing Organization Address [facility] [address]/[facility] Co de Phone Number [facility] [address] [place] [address] * Troponin T high-sensitivity 2-hour (09/10/2024 10:56 AM CDT) Trop T hs <6 <=14 ng/L Comment: Slight hemolysis may result in decreased troponin measurement. Consider recollection. Interpretive Data For further hscTnT resources including the diagnostic algorithm and an aid in interpretation, copy and paste this link: https://nrl.testcatalog.org/show/hsTrop Current Interpretive Data last revised 2020. Trop T hs delta 0 ng/L [facility] Trop T hs interp Insignificant [facility] Blood 09/10/2024 10:5 6 AM CDT 09/10/2024 11:03 AM CDT Miller Damon MD LAB BLOOD ORDERABLES Final Resul t Performing Organization Address [facility] [address]/[facility] Co de Phone Number [facility] [address] [place] [address] * CT Head WO Contrast (09/10/2024 9:23 AM CDT) Anatomical Region Laterality Modality Head and Neck N/A Computed Tomogra phy 09/10/2024 9:25 AM CDT Impressions 09/10/2024 9:25 AM CDT No acute intracranial abnormality. Electronically signed by: Karlos Mackey M.D. Narrative 09/10/2024 9:25 AM CDT EXAMINATION: CT head without contrast HISTORY: 59-year-old woman headaches history of hypertension and migraines. Dizziness. TECHNIQUE: Noncontrast CT of the brain was performed with images acquired from skull base to vertex. COMPARISON: None available. FINDINGS: There is no acute intracranial hemorrhage. Ventricles are of normal size and morphology. No mass effect or midline shift is present. The shepherd-white matter differentiation is normal. The visualized portions of the orbits are without acute abnormality. The visualized portions of the mastoids are normal. The visualized portions of the paranasal sinuses are normal. No fractures are identified. Procedure Note Karlos Mackey MD - 09/10/2024 EXAMINATION: CT head without contrast HISTORY: 59-year-old woman headaches history of hypertension and migraines. Dizziness. TECHNIQUE: Noncontrast CT of the brain was performed with images acquired from skull base to vertex. COMPARISON: None available. FINDINGS: There is no acute intracranial hemorrhage. Ventricles are of normal size and morphology. No mass effect or midline shift is present. The shepherd-white matter differentiation is normal. The visualized portions of the orbits are without acute abnormality. The visualized portions of the mastoids are normal. The visualized portions of the paranasal sinuses are normal. No fractures are identified. IMPRESSION: No acute intracranial abnormality. Electronically signed by: Karlos Mackey M.D. Miller Damon MD IM CT PROCEDURES Final Result * XR Chest 1 Vw Portable (09/10/2024 9:01 AM CDT) Anatomical Region Laterality Modality Body, Chest N/A Computed Radiogr aphy 09/10/2024 9:05 AM CDT Impressions 09/10/2024 9:05 AM CDT Normal study. Electronically signed by: Karlos Mackey M.D. Narrative 09/10/2024 9:05 AM CDT EXAMINATION: XR CHEST 1 VIEW DATE: 09/10/2024 8:50 AM HISTORY: Dizziness FINDINGS:No priors. Normal heart size. Lungs clear Procedure Note Karlos Mackey MD - 09/10/2024 EXAMINATION: XR CHEST 1 VIEW DATE: 09/10/2024 8:50 AM HISTORY: Dizziness FINDINGS:No priors. Normal heart size. Lungs clear IMPRESSION: Normal study. Electronically signed by: Karlos Mackey M.D. Miller Damon MD IMG XR PROCEDURES Final Result * Troponin T high-sensitivity series (baseline, 2hr, 4hr, 6hr) (09/10/2024 8:46 AM CDT) Trop T hs <6 <=14 ng/L Comment: Interpretive Data For further hscTnT resources including the diagnostic algorithm and an aid in interpretation, copy and paste this link: https://nrl.testcatalog.org/show/hsTrop Current Interpretive Data last revised 2020. Blood 09/10/2024 8:46 AM CDT 09/10/2024 8:48 AM CDT Miller Damon MD LAB BLOOD ORDERABLES Edited Resu lt - Final [facility] [address] [place] [address] * eGFR (09/10/2024 8:46 AM CDT) eGFR >90 >=60 mL/min/1. 73 m2 Comment: Interpretive Data Reference Interval Normal >/= 90 mL/min/1.73m2 Mildly decreased* 60 - 89 mL/min/1.73m2 Mildly to moderately decreased 45 - 59 mL/min/1.73m2 Moderately to severely decreased 30 - 44 mL/min/1.73m2 Severely decreased 15 - 29 mL/min/1.73m2 Kidney Failure < 15 mL/min/1.73m2 *Relative to young adult level Estimated glomerular filtration rate is determined by the 2020 CKD-EPI equation recommended by the National Kidney Foundation (A Unifying Approach to GFR Estimation: Recommendations of the NKF-ASK Task Force on Reassessing the Inclusion of Race in Diagnosing Kidney Disease, JASN 2020). The CKD-EPI equation should not be used for patients with unstable renal function and has not been validated in children and those over 70. Current interpretive data was last reviewed 2021. Blood 09/10/2024 8:46 AM CDT 09/10/2024 8:48 AM CDT us Miller Damon MD LAB BLOOD ORDERABLES Final Resul t [facility] [address] [place] [address] * (ABNORMAL) Differential, auto (09/10/2024 8:46 AM CDT) Neutrophil abs 7.78(H) 1.50 - 6.50 K/cumm Imm gran abs 0.11(H) 0.00 - 0.10 K/cumm [facility] Lymphocyte abs 3.02 0.80 - 3.30 K/cumm [facility] Monocyte abs 0.74 0.20 - 0.80 K/cumm [facility] Eosinophil abs 0.01 0.00 - 0.50 K/cumm [facility] Basophil abs 0.04 0.00 - 0.10 K/cumm [facility] Neutrophil pct 66.6 % [facility] Comment: Interpretive Data Percent cell count reference ranges are not reported, since discordance with absolute values may lead to misinterpretation of CBC data. Current Interpretive Data was last revised on 2017. Imm gran pct 0.9 % [facility] Comment: Interpretive Data Percent cell count reference ranges are not reported, since discordance with absolute values may lead to misinterpretation of CBC data. Current Interpretive Data was last revised on 2017. Lymphocyte pct 25.8 % [facility] Comment: Interpretive Data Percent cell count reference ranges are not reported, since discordance with absolute values may lead to misinterpretation of CBC data. Current Interpretive Data was last revised on 2017. Monocyte pct 6.3 % [facility] Comment: Interpretive Data Percent cell count reference ranges are not reported, since discordance with absolute values may lead to misinterpretation of CBC data. Current Interpretive Data was last revised on 2017. Eosinophil pct 0.1 % [facility] Comment: Interpretive Data Percent cell count reference ranges are not reported, since discordance with absolute values may lead to misinterpretation of CBC data. Current Interpretive Data was last revised on 2017. Basophil pct 0.3 % [facility] Comment: Interpretive Data Percent cell count reference ranges are not reported, since discordance with absolute values may lead to misinterpretation of CBC data. Current Interpretive Data was last revised on 2017. Blood 09/10/2024 8:46 AM CDT 09/10/2024 8:48 AM CDT us Miller Damon MD LAB BLOOD ORDERABLES Final Resul t [facility] DAN [id number] [place] [address] * Pro B-type natriuretic peptide (09/10/2024 8:46 AM CDT) NT-proBNP <36 <=300 pg/mL Comment: Interpretive Comments: A. Dyspnea in Acute Care Setting All Ages: < 300 pg/ml, acute heart failure unlikely. < 50 yrs: 300 - 450 pg/ml, further investigation warranted. > 450 pg/ml, acute heart failure likely. 50 - 74 yrs: 300 - 900 pg/ml, further investigation warranted. > 900 pg/ml, acute heart failure likely . > or = 75 yrs: 450 - 1800 pg/ml, further investigation warranted. > 1800 pg/ml, acute heart failure likely. B. Non-acute Setting < 75 yrs < 125 pg/ml, rules out heart failure. > or = 125 pg/ml, further investigation warranted. > or = 75 yrs < 450 pg/ml, rules out heart failure. > or = 450 pg/ml, further investigation warranted. - Knowledge of each individual patient's NT-proBNP range may be more useful than using similar cut-points for every patient. Please note that marked elevations in NT-proBNP levels may be observed in state other than Left Ventricular Congestive Failure, including: acute coronary syndromes, right heart strain/failure (including pulmonary embolism and cor pulmonale), critical illness, renal failure, as well as advanced age. - References: 1. Nieves NOVAK et.al. Eur Heart J. 2006:27:330-337. 2. Lynn RW, aMggy AM. J. AM Azeb Cardiol: Cardiovasc Imag. 2009;2: 216- 225. Interpretive Data Last Revised Date: 2017. Blood 09/10/2024 8:46 AM CDT 09/10/2024 8:48 AM CDT Miller Damon MD LAB BLOOD ORDERABLES Final Resul t Performing Organization Address City/[facility] [address]/ZIP Co de Phone Number MARIA DAN [address] Department [employer] [place] [address] * (ABNORMAL) CBC with auto differential (09/10/2024 8:46 AM CDT) WBC 11.70(H) 3.80 - 9.90 K/cumm Hgb 15.4 11.9 - 15.5 g/dL [facility] Hct 46.5(H) 35.6 - 45.5 % [facility] Plt 256 150 - 400 K/cumm [facility] MPV 11.6 9.1 - 12.3 fL [facility] RBC 4.96 3.90 - 5.20 M/cumm [facility] MCV 93.8 81.3 - 96.4 fL [facility] MCH 31.0 27.1 - 33.3 pg [facility] MCHC 33.1 32.3 - 35.7 g/dL [facility] RDW CV 11.9 11.1 - 14.9 % [facility] RDW SD 40.6 35.7 - 48.1 fL [facility] NRBC abs 0.00 0.00 - 0.01 K/cumm [facility] Blood 09/10/2024 8:46 AM CDT 09/10/2024 8:48 AM CDT Miller Damon MD LAB BLOOD ORDERABLES Final Resul t MARIA DAN [address] Department [employer] [place] [address] * Lipase (09/10/2024 8:46 AM CDT) Lipase 20 10 - 99 Units/L Blood 09/10/2024 8:46 AM CDT 09/10/2024 8:48 AM CDT us Miller Damon MD LAB BLOOD ORDERABLES Final Resul t MARIA [address] [place] [address] * (ABNORMAL) Comprehensive metabolic panel (09/10/2024 8:46 AM CDT) Sodium 142 135 - 145 mmol/L Potassium, pl 3.6 3.3 - 4.9 mmol/L [facility] Chloride 108 97 - 110 mmol/L [facility] CO2 19(L) 22 - 32 mmol/L [facility] Anion gap 15 2 - 15 mmol/L [facility] BUN 11 6 - 25 mg/dL [facility] Creatinine 0.67 0.60 - 1.10 mg/dL [facility] Glucose 145 70 - 199 mg/dL [facility] Comment: Interpretive Data Fasting glucose >/= 126 mg/dl is diagnostic for diabetes. Fasting is defined as no caloric intake for at least 8 hours. Fasting glucose between 100 mg/dl to 125 mg/dl is diagnostic of prediabetes. In a patient with classic symptoms of hyperglycemia or hyperglycemic crisis, a random glucose >/= 200 mg/dl is diagnostic for diabetes. In the absence of unequivocal hyperglycemia, results should be confirmed by repeat testing. The classification and Diagnosis of Diabetes Diabetes Care 202; 46: S19-S40. Current interpretive data was last revised 2022. Calcium 9.3 8.5 - 10.3 mg/dL [facility] Bilirubin, total 0.6 0.1 - 1.2 mg/dL [facility] Protein, pl 7.5 6.5 - 8.5 g/dL [facility] Albumin 4.2 3.5 - 5.0 g/dL [facility] Alk phos 91 40 - 130 Units/L [facility] ALT 18 7 - 45 Units/L [facility] AST 19 10 - 45 Units/L [facility] Blood 09/10/2024 8:46 AM CDT 09/10/2024 8:48 AM CDT us Miller Damon MD LAB BLOOD ORDERABLES Final Resul t MARIA DAN [address] Department of Laboratories [place] [phone] * ECG 12 lead (09/10/2024 8:38 AM CDT) 09/10/2024 8:38 AM CDT Narrative [facility] - 09/10/2024 9:14 AM CDT Vent Rate: 83 bpm RR Interval: 720 msec [place] Interval: 165 msec QRS Duration: 96 msec QT Interval: 399 msec QTC Interval: 439 msec P-R-T [place]: 58 - 9 - 57 degrees IMPRESSION: SINUS RHYTHM POSSIBLE LEFT ATRIAL ENLARGEMENT [-0.1mV P-WAVE IN V1/V2] MINIMAL ST DEPRESSION [0.025+ mV ST DEPRESSION] BORDERLINE ECG Electronically Signed By: Lawrence Kaplan MD us Miller Damon MD ECG ORDERABLES Final Result Performing Organization Address City/[facility] [address]/[facility] Co de Phone Number [facility] [employer] [facility] from Last 3 Months Insurance [employer] [facility] CHOICE [facility] HMO/PPO Address: [address] [address] [place] [address] Advance Directives For more information, please contact: [phone] * Full Code (Latest Code Status on File) Date Activated Date Inactivated Comments 09/10/2024 11:34 AM 09/13/2024 5:57 PM Care Teams Parking Ramp Attendant Relationship Specialty Start Date End Date Diamante Abraham NP [address] [place] [address] [place] [address] PCP - General Nurse Practitioner 09/10/24 [place] [address] [address] [place] [address] Consulting Physician Neurology 09/13/24
--- OUTSIDE RECORDS SUMMARY | 2024-09-27 11:38 | XMS_ITS | Clinical Summary ---
Author Organization [facility] Address [address] [address] Phone Care Team Providers Care Postal Mail Carrier Name Role Phone Jose Vasquez DO Unavailable [phone] Augusto Michel MD Primary Care Provider [phone] Allergies No known active allergies Medications Multiple Vitamin (MULTI-VITAMIN PO) Take 1 Tab by mouth daily. Active other 180 mg by Other route daily. Nexletol - cholesterol pill RX Active Norethin Trev-Eth Estrad-FE (MICROGESTIN 24 FE PO) Take 1 Tab by mouth daily. Active Fate-3 Fatty Acids (FISH OIL) 1200 MG Capsule [...] patient's age to complete this topic Insurance [facility] [employer] Care Teams Postal Mail Carrier Relationship Specialty Start Date End Date Augusto Michel MD [address] [place] [id number] PCP - General Family Medicine 04/10/16 Jose Vasquez DO Gastroenterology 01/05/16
--- OUTSIDE RECORDS SUMMARY | 2024-09-27 11:38 | XMS_ITS | Clinical Summary ---
Author Organization [facility] Building B Address [address] [place] [address] Care Team Providers Care Mixing And Dispensing Supervisor Name Role Phone Diamante Abraham NP Primary Care Provider [phone] Aga PETERSON MD, Reno Arroyo Unavailable [phone] Allergies No known active allergies Medications vitamin [...] cancer 01/07/2023 Encounter for screening colonoscopy 01/07/2023 Encounters Date Type Department Care Team Description 09/10/2024 8:30 AM CDT - 09/13/2024 1:50 PM CDT Hospital Encounter [place] [id number] Miller Damon MD Ogunremi, Olumide Omolulu, MD Rudomiotov, Olga, MD Onaghise, Jude, MD Dizziness (Primary Dx); Vertigo; Nausea and vomiting, unspecified vomiting type Discharge Disposition: Discharge to home or self care 09/10/2024 8:03 AM CDT - 09/10/2024 11:59 PM CDT Hospital Encounter [facility] Emergency, Room R Discharge Disposition: Discharge to home or self care from Last 3 Months Surgical History Surgery Date Site/Laterality Comments TONSILLECTOMY [...] Smoking Tobacco: Former Cigarettes 1.5 20 1 992 - 2011 Smokeless Tobacco: Never Alcohol Use Standard Drinks/Week Comments Yes 0 (1 standard drink = 0.6 oz pur e alcohol) [facility] Utilities Answer Date Recorded In the past 12 months has [employer], gas, oil, or water [employer] threatened to shut off services in your home? No 09/10/2024 Social Connection and Isolation Panel [NHANES] A nswer Date Recorded In a typical week, how many times do you talk on the phone with family, friends, or neighbors? Twice a week 09/10/2024 How often do you get together with friends or re latives? Once a week 09/10/2024 How often do you attend cheondoism or shinto serv ices? Never 09/10/2024 Do you belong to any clubs o r organizations such as cheondoism groups, unions, fraternal or athletic groups, or [...] any time in the past 12 m [facility], were you homeless or living in a intermediate (including now)? No 09/10/2024 Personal Safety Answer Date Recorded Have you ever been in or are you currently in a harmful physical or emotional relationship or is someone making you feel afraid or unsafe? 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 Gender Identity Not on file Sexual Orientation [...] 09/11/2024 3:57 PM CDT Plan of Treatment Health Maintenance Due Date Last Done Comments Breast Cancer Screening-Mammogram 1965 Cervical Cancer Screening 1965 Colon Cancer Screening-Colonoscopy 1965 Depression Screening 1965 Hepatitis C Screening 1965 Hepatitis B Screening 06/12/1983 Regular Well Visit/Exam 18-64 06/12/1983 DTaP/Tdap/Td Vaccine (1 - Tdap) 04/01/1998 9 Lung Cancer Screening 06/12/2015 Zoster Vaccine (1 of 2) 06/12/2015 Influenza Vaccine (Season Ended) 2024 Pneumococcal vaccine <65 Aged Out No longer eligible based on patient's age to complete this topic Procedures Procedure Name Priority Date/Time Associated Diagnosis [...] PM CDT Narrative 09/13/2024 3:[place] [address] Echocardiogram Report Patient Name: YOGESH PROCTOR L : 1965 Study Date: 09/13/2024 1:23:13 PM Gender: F Tech: Location: [place] [address] Ref Provider: RENNY ROMAN Height(Cm): 170 BSA: [...] Procedure Note Sarah Reza MD - 09/13/2024 [place] [address] Echocardiogram Report Patient Name: YOGESH PROCTOR L : 1965 Study Date: 09/13/2024 1:23:13 PM Gender: F Tech: Location: [id number] Ref Provider: RENNY ROMAN Height(Cm): 170 BSA: 2.03 Weight(Kg): 87 Heart Rate: 59 BP: 123 / 69 Quality: Good Order Provider: RENNY ROMAN PROCEDURES: Echocardiographic Report: Transthoracic echocardiogram with complete 2D, M-Mode, and color Dopplerexamination. INDICATIONS: HTN. Dizziness. MEASUREMENTS: 2D/MM Value Range DopplerValue Range EF Teich 2D 72.0 percent [ 54.0 - 74.0 ] PEARL Vmax2.48 cm2 EF Mod BP 72 % [...] signed by: Олег Juarez M.D. Renny Roman DISH CARRIER IMG US PROCEDURES F inal Result * eGFR (09/13/2024 4:58 AM CDT) Pathologist [facility] eGFR >90 >=60 mL/min/1. 73 m2 Comment: [...] NP LAB BLOOD ORDERABLES Final Result MARIA [address] [address] [place] [address] * (ABNORMAL) Differential, auto (09/13/2024 4:58 AM CDT) Pathologist [facility] Neutrophil abs 4.31 1.50 - 6.50 K/cumm Imm gran abs 0.02 0.00 - 0.10 K/cumm [facility] Lymphocyte abs 2.50 0.80 - 3.30 K/cumm [facility] Monocyte abs 0.81(H) 0.20 - 0.80 K/cumm [facility] Eosinophil abs 0.12 0.00 - 0.50 K/cumm [facility] Basophil abs 0.05 0.00 - 0.10 K/cumm [facility] Neutrophil pct 55.2 % [facility] Comment: Interpretive Data Percent cell count reference ranges are not reported, since discordance with absolute values may lead to misinterpretation of CBC data. Current Interpretive Data was last revised on 2017. Imm gran pct 0.3 % [facility] Comment: Interpretive Data Percent cell count reference ranges are not reported, since discordance with absolute values may lead to misinterpretation of CBC data. Current Interpretive Data was last revised on 2017. Lymphocyte pct 32.0 % [facility] Comment: Interpretive Data Percent cell count reference ranges are not reported, since discordance with absolute values may lead to misinterpretation of CBC data. Current Interpretive Data was last revised on 2017. Monocyte pct 10.4 % [facility] Comment: Interpretive Data Percent cell count reference ranges are not reported, since discordance with absolute values may lead to misinterpretation of CBC data. Current Interpretive Data was last revised on 2017. Eosinophil pct 1.5 % [facility] Comment: Interpretive Data Percent cell count reference ranges are not reported, since discordance with absolute values may lead to misinterpretation of CBC data. Current Interpretive Data was last revised on 2017. Basophil pct 0.6 % [facility] Comment: Interpretive Data Percent cell count reference ranges are not reported, since discordance with absolute values may lead to misinterpretation of CBC data. Current Interpretive Data was last revised on 2017. Blood 09/13/2024 4:58 AM CDT 09/13/2024 5:39 AM CDT Belle Cordova NP LAB BLOOD ORDERABLES Final Result [facility] [id number] [address] [place] [address] * CBC with auto differential (09/13/2024 4:58 AM CDT) WBC 7.81 3.80 - 9.90 K/cumm Hgb 12.8 11.9 - 15.5 g/dL [facility] Hct 38.8 35.6 - 45.5 % [facility] Plt 210 150 - 400 K/cumm [facility] MPV 12.1 9.1 - 12.3 fL [facility] RBC 4.08 3.90 - 5.20 M/cumm [facility] MCV 95.1 81.3 - 96.4 fL [facility] MCH 31.4 27.1 - 33.3 pg [facility] MCHC 33.0 32.3 - 35.7 g/dL [facility] CH RDW CV 11.9 11.1 - 14.9 % [facility] CH RDW SD 41.3 35.7 - 48.1 fL [facility] NRBC abs 0.00 0.00 - 0.01 K/cumm [facility] Blood 09/13/2024 4:58 AM CDT 09/13/2024 5:39 AM CDT Belle Cordova NP LAB BLOOD ORDERABLES Final Result [place] [address] [address] [place] [address] * Basic metabolic panel (09/13/2024 4:58 AM CDT) Sodium 143 135 - 145 mmol/L Potassium, pl 3.6 3.3 - 4.9 mmol/L [facility] Chloride 108 97 - 110 mmol/L [facility] CO2 23 22 - 32 mmol/L [facility] Anion gap 12 2 - 15 mmol/L [facility] BUN 10 6 - 25 mg/dL [facility] Creatinine 0.71 0.60 - 1.10 mg/dL [facility] Glucose 100 70 - 199 mg/dL [facility] Comment: Interpretive Data Fasting glucose >/= 126 [...] 2022. Calcium 8.8 8.5 - 10.3 mg/dL [facility] Blood 09/13/2024 4:58 AM CDT 09/13/2024 5:38 AM CDT Belle Peñalarry LEE LAB BLOOD ORDERABLES Final Result [facility] [address] [address] [address] [place] [address] * eGFR (09/12/2024 6:08 AM CDT) eGFR >90 >=60 mL/min/1. 73 [...] AM CDT 09/12/2024 6:34 AM CDT Belle Wiley Tasha LEE LAB BLOOD ORDERABLES Final Result [facility] [address] [address] [address] [place] [address] * (ABNORMAL) Differential, auto (09/12/2024 6:08 AM CDT) Neutrophil abs 4.63 1.50 - 6.50 K/cumm Imm gran abs 0.02 0.00 - 0.10 K/cumm [facility] Lymphocyte abs 2.54 0.80 - 3.30 K/cumm [facility] Monocyte abs 0.81(H) 0.20 - 0.80 K/cumm [facility] Eosinophil abs 0.08 0.00 - 0.50 K/cumm [facility] Basophil abs 0.06 0.00 - 0.10 K/cumm [facility] Neutrophil pct 56.9 % [facility] Comment: Interpretive Data Percent cell count reference ranges are not reported, since discordance with absolute values may lead to misinterpretation of CBC data. Current Interpretive Data was last revised on 2017. Imm gran pct 0.2 % [facility] Comment: Interpretive Data Percent cell count reference ranges are not reported, since discordance with absolute values may lead to misinterpretation of CBC data. Current Interpretive Data was last revised on 2017. Lymphocyte pct 31.2 % [facility] Comment: Interpretive Data Percent cell count reference ranges are not reported, since discordance with absolute values may lead to misinterpretation of CBC data. Current Interpretive Data was last revised on 2017. Monocyte pct 10.0 % [facility] Comment: Interpretive Data Percent cell count reference ranges are not reported, since discordance with absolute values may lead to misinterpretation of CBC data. Current Interpretive Data was last revised on 2017. Eosinophil pct 1.0 % [facility] Comment: Interpretive Data Percent cell count reference ranges are not reported, since discordance with absolute values may lead to misinterpretation of CBC data. Current Interpretive Data was last revised on 2017. Basophil pct 0.7 % [facility] Comment: Interpretive Data Percent cell count reference ranges are not reported, since discordance with absolute values may lead to misinterpretation of CBC data. Current Interpretive Data was last revised on 2017. Blood 09/12/2024 6:08 AM CDT 09/12/2024 6:35 AM CDT us Belle Cordova NP LAB BLOOD ORDERABLES Final Result [facility] [address] [address] Department [place] [address] * CBC with auto differential (09/12/2024 6:08 AM CDT) Pathologist [facility] WBC 8.14 3.80 - 9.90 K/cumm Hgb 12.7 11.9 - 15.5 g/dL [facility] Hct 37.9 35.6 - 45.5 % [facility] Plt 210 150 - 400 K/cumm [facility] MPV 12.1 9.1 - 12.3 fL [facility] RBC 3.99 3.90 - 5.20 M/cumm [facility] MCV 95.0 81.3 - 96.4 fL [facility] MCH 31.8 27.1 - 33.3 pg [facility] MCHC 33.5 32.3 - 35.7 g/dL [facility] RDW CV 12.0 11.1 - 14.9 % [facility] RDW SD 42.1 35.7 - 48.1 fL [facility] NRBC abs 0.00 0.00 - 0.01 K/cumm [facility] Blood 09/12/2024 6:08 AM CDT 09/12/2024 6:35 AM CDT Belle Cordova NP LAB BLOOD ORDERABLES Final Result [facility] [address] [address] Department [place] [address] * (ABNORMAL) Basic metabolic panel (09/12/2024 6:08 AM CDT) [facility] Sodium 143 135 - 145 mmol/L Potassium, pl 3.6 3.3 - 4.9 mmol/L [facility] Chloride 111(H) 97 - 110 mmol/L [facility] CO2 21(L) 22 - 32 mmol/L [facility] Anion gap 11 2 - 15 mmol/L [facility] BUN 8 6 - 25 mg/dL [facility] Creatinine 0.66 0.60 - 1.10 mg/dL [facility] Glucose 98 70 - 199 mg/dL [facility] Comment: Interpretive Data Fasting glucose >/= 126 [...] 2022. Calcium 8.5 8.5 - 10.3 mg/dL [facility] D[facility] Blood 09/12/2024 6:08 AM CDT 09/12/2024 6:34 AM CDT us Belle Cordova NP LAB BLOOD ORDERABLES Final Result [facility] [address] [address] [address] [place] [address] * MRI Brain WO Contrast (09/11/2024 6:16 [...] arteries and basilar artery. Procedure Note Zachary Moa III, MD PhD - 09/12/2024 EXAMINATION: Magnetic [...] Zachary Mao M.D. Reno Yung II, MD IM MRI PROCEDURES Final Res ult * eGFR [...] Cordova NP LAB BLOOD ORDERABLES Final Result [facility] [address] [address] [place] [address] * (ABNORMAL) Differential, auto (09/11/2024 6:01 AM CDT) Neutrophil abs 7.63(H) 1.50 - 6.50 K/cumm Imm gran abs 0.04 0.00 - 0.10 K/cumm [facility] Lymphocyte abs 2.40 0.80 - 3.30 K/cumm [facility] Monocyte abs 0.91(H) 0.20 - 0.80 K/cumm [facility] Eosinophil abs 0.06 0.00 - 0.50 K/cumm [facility] Basophil abs 0.04 0.00 - 0.10 K/cumm [facility] Neutrophil pct 68.8 % [facility] Comment: Interpretive Data Percent cell count reference ranges are not reported, since discordance with absolute values may lead to misinterpretation of CBC data. Current Interpretive Data was last revised on 2017. Imm gran pct 0.4 % [facility] Comment: Interpretive Data Percent cell count reference ranges are not reported, since discordance with absolute values may lead to misinterpretation of CBC data. Current Interpretive Data was last revised on 2017. Lymphocyte pct 21.7 % [facility] Comment: Interpretive Data Percent cell count reference ranges are not reported, since discordance with absolute values may lead to misinterpretation of CBC data. Current Interpretive Data was last revised on 2017. Monocyte pct 8.2 % [facility] Comment: Interpretive Data Percent cell count reference ranges are not reported, since discordance with absolute values may lead to misinterpretation of CBC data. Current Interpretive Data was last revised on 2017. Eosinophil pct 0.5 % [facility] Comment: Interpretive Data Percent cell count reference ranges are not reported, since discordance with absolute values may lead to misinterpretation of CBC data. Current Interpretive Data was last revised on 2017. Basophil pct 0.4 % [facility] Comment: Interpretive Data Percent cell count reference ranges are not reported, since discordance with absolute values may lead to misinterpretation of CBC data. Current Interpretive Data was last revised on 2017. Blood 09/11/2024 6:01 AM CDT 09/11/2024 6:31 AM CDT Belle Cordova NP LAB BLOOD ORDERABLES Final Result [facility] [address] [address] [place] [address] * (ABNORMAL) CBC with auto differential (09/11/2024 6:01 AM CDT) WBC 11.08(H) 3.80 - 9.90 K/cumm Hgb 13.0 11.9 - 15.5 g/dL [facility] Hct 38.9 35.6 - 45.5 % [facility] Plt 208 150 - 400 K/cumm [facility] MPV 12.0 9.1 - 12.3 fL [facility] RBC 4.10 3.90 - 5.20 M/cumm [facility] MCV 94.9 81.3 - 96.4 fL [facility] MCH 31.7 27.1 - 33.3 pg [facility] MCHC 33.4 32.3 - 35.7 g/dL [facility] RDW CV 12.0 11.1 - 14.9 % [facility] RDW SD 42.1 35.7 - 48.1 fL [facility] NRBC abs 0.00 0.00 - 0.01 K/cumm [facility] Blood 09/11/2024 6:01 AM CDT 09/11/2024 6:31 AM CDT Belle Cordova NP LAB BLOOD ORDERABLES Final Result [facility] [address] [address] Department [place] [address] * (ABNORMAL) Basic metabolic panel (09/11/2024 6:01 AM CDT) Pathologist [facility] Sodium 142 135 - 145 mmol/L Potassium, pl 3.5 3.3 - 4.9 mmol/L [facility] Chloride 110 97 - 110 mmol/L [facility] CO2 21(L) 22 - 32 mmol/L [facility] Anion gap 11 2 - 15 mmol/L [facility] BUN 8 6 - 25 mg/dL [facility] Creatinine 0.64 0.60 - 1.10 mg/dL [facility] Glucose 96 70 - 199 mg/dL [facility] [...] NP LAB BLOOD ORDERABLES Final Result [facility] [address] [address] [place] [address] * (ABNORMAL) Urinalysis reflex to microscopic and culture Urine (09/10/2024 9:22 PM CDT) Color, ur Yellow Yellow Clarity, ur Clear Clear [facility] Specific gravity, ur 1.017 1.003 - 1.030 [facility] pH, urine 6.0 [facility] Comment: Interpretive Data U rine pH is affected by diet, medications, systemic acid-base disturbances, and renal tubular function. pH may affect urinary stone formation. For example, urine pH below 6.0 may help reduce the tendency for calcium phosphate stones and pH greater than 6.0 may reduce the tendency for uric acid stone formation. Source: [facility] Current Interpretive Data was last revised on 2017 Protein, ur ql Negative Negative [facility] Glucose, ur ql Negative Negative [facility] Ketones, ur 1+(A) Negative [facility] Bilirubin, ur Negative Negative [facility] Blood, ur Negative Negative [facility] Urobilinogen, ur <2.0 <2.0 mg/dL [facility] Nitrite, ur Negative Negative [facility] Leukocyte esterase, ur 3+(A) Negative [facility] UA reflex comment Reflex to microscopic UA will be performed. [facility] Urine 09/10/2024 9:22 PM CDT 09/10/2024 9:34 PM CDT Belle Cordova NP LAB MICROBIOLOGY - G ENERAL ORDERABLES Final Result [facility] [address] [address] [place] [address] * (ABNORMAL) Urinalysis, microscopic only (09/10/2024 9:22 PM CDT) WBC, ur 11-20(A) 0 - 5 /HPF RBC, ur 0-2 0 - 2 /HPF [facility] Epithelial cells, squamous, ur 1-5 0 - 5 /HPF [facility] Mucous, ur Present(A) [facility] Hyaline casts, ur 1-5 0 - 10 /LPF [facility] Culture Reflex Comment Reflex to urine culture will be performed. [facility] Urine 09/10/2024 9:22 PM CDT 09/10/2024 9:35 PM CDT Belle Cordova NP LAB URINE ORDERABLES Final Result Performing Organization Address [facility] Co de Phone Number [facility] [id number] [address] [place] [address] * Urine culture Urine (09/10/2024 9:22 PM CDT) Report Final Report: Less than 100,000 colonies/mL (clinically insignificant growth based on current clinical standards) Comment:Testing performed by : [facility], [address] [place]., [address] Organism (CLINICALLY INSIGNIFICANT GROWTH [facility] Urine 09/10/2024 9:22 PM CDT 09/11/2024 12:56 AM CDT Narrative [facility] - 09/12/2024 6:38 AM CDT Urine culture reflexed based upon urinalysis results. Testing performed by [facility] ([phone]) Belle Cordova NP LAB MICROBIOLOGY - G ENERAL ORDERABLES Final Result Performing Organization Address [facility] Co de Phone Number [facility] [address] [address] [place] [address] * Troponin T high-sensitivity 2-hour (09/10/2024 10:56 AM CDT) Trop T hs <6 <=14 ng/L Comment: Slight hemolysis may result in decreased troponin measurement. Consider recollection. Interpretive Data For further hscTnT resources including the diagnostic algorithm and an aid in interpretation, copy and paste this link: https://nrl.testcatalog.org/show/hsTrop Current Interpretive Data last revised 2020. Trop T hs delta 0 ng/L [facility] Trop T hs interp Insignificant [facility] Blood 09/10/2024 10:5 6 AM CDT 09/10/2024 11:03 AM CDT us Miller Damon MD LAB BLOOD ORDERABLES Final Resul t [facility] [address] [address] [place] [address] * CT Head WO Contrast (09/10/2024 9:23 [...] Karlos Mackey M.D. Miller Damon MD IMG CT PROCEDURES Final Result * XR Chest [...] BLOOD ORDERABLES Edited Resu lt - Final [facility] [address] [address] [place] [address] * eGFR (09/10/2024 8:46 AM CDT) eGFR [...] LAB BLOOD ORDERABLES Final Resul t [facility] [address] [address] [place] [address] * (ABNORMAL) Differential, auto (09/10/2024 8:46 AM CDT) Neutrophil abs 7.78(H) 1.50 - 6.50 K/cumm Imm gran abs 0.11(H) 0.00 - 0.10 K/cumm [facility] Lymphocyte abs 3.02 0.80 - 3.30 K/cumm [facility] Monocyte abs 0.74 0.20 - 0.80 K/cumm [facility] Eosinophil abs 0.01 0.00 - 0.50 K/cumm [facility] Basophil abs 0.04 0.00 - 0.10 K/cumm [facility] Neutrophil pct 66.6 % [facility] Comment: Interpretive Data Percent cell count reference ranges are not reported, since discordance with absolute values may lead to misinterpretation of CBC data. Current Interpretive Data was last revised on 2017. Imm gran pct 0.9 % [facility] Comment: Interpretive Data Percent cell count reference ranges are not reported, since discordance with absolute values may lead to misinterpretation of CBC data. Current Interpretive Data was last revised on 2017. Lymphocyte pct 25.8 % [facility] Comment: Interpretive Data Percent cell count reference ranges are not reported, since discordance with absolute values may lead to misinterpretation of CBC data. Current Interpretive Data was last revised on 2017. Monocyte pct 6.3 % [facility] Comment: Interpretive Data Percent cell count reference ranges are not reported, since discordance with absolute values may lead to misinterpretation of CBC data. Current Interpretive Data was last revised on 2017. Eosinophil pct 0.1 % [facility] Comment: Interpretive Data Percent cell count reference ranges are not reported, since discordance with absolute values may lead to misinterpretation of CBC data. Current Interpretive Data was last revised on 2017. Basophil pct 0.3 % [facility] Comment: Interpretive Data Percent cell count reference ranges are not reported, since discordance with absolute values may lead to misinterpretation of CBC data. Current Interpretive Data was last revised on 2017. Blood 09/10/2024 8:46 AM CDT 09/10/2024 8:48 AM CDT us Miller Damon MD LAB BLOOD ORDERABLES Final Resul t [facility] [address] [address] [place] [address] * Pro B-type natriuretic peptide (09/10/2024 8:46 [...] Eur Heart J. 2006:27:330-337. 2. Lynn RW, Maggy AM. J. AM Azeb Cardiol: Cardiovasc Imag. 2009;2: 216- 225. Interpretive Data Last Revised Date: 2017. Blood 09/10/2024 8:46 AM CDT 09/10/2024 8:48 AM CDT us Miller Damon MD LAB BLOOD ORDERABLES Final Resul t [facility] [address] [address] [place] [address] * (ABNORMAL) CBC with auto differential (09/10/2024 8:46 AM CDT) WBC 11.70(H) 3.80 - 9.90 K/cumm Hgb 15.4 11.9 - 15.5 g/dL [facility] Hct 46.5(H) 35.6 - 45.5 % [facility] Plt 256 150 - 400 K/cumm [facility] MPV 11.6 9.1 - 12.3 fL [facility] RBC 4.96 3.90 - 5.20 M/cumm [facility] MCV 93.8 81.3 - 96.4 fL [facility] MCH 31.0 27.1 - 33.3 pg [facility] [...] ORDERABLES Final Resul t Performing Organization Address City/[facility] Co de Phone Number [facility] [phone] [address] [facility] [place] [id number] * Lipase (09/10/2024 8:46 AM CDT) Lipase 20 10 - 99 Units/L Blood 09/10/2024 8:46 AM CDT 09/10/2024 8:48 AM CDT Miller Damon MD LAB BLOOD ORDERABLES Final Resul t Performing Organization Address [facility] de Phone Number [facility] [address] [address] [place] [address] * (ABNORMAL) Comprehensive metabolic panel (09/10/2024 8:46 AM CDT) Sodium 142 135 - 145 mmol/L Potassium, pl 3.6 3.3 - 4.9 mmol/L [facility] Chloride 108 97 - 110 mmol/L [facility] CO2 19(L) 22 - 32 mmol/L [facility] Anion gap 15 2 - 15 mmol/L [facility] BUN 11 6 - 25 mg/dL [facility] Creatinine 0.67 0.60 - 1.10 mg/dL [facility] Glucose 145 70 - 199 mg/dL [facility] Comment: Interpretive Data Fasting glucose >/= 126 [...] ORDERABLES Final Resul t Performing Organization Address City/[facility]/ZIP Co de Phone Number [facility] [id number] [address] Department [place] [address] * ECG 12 lead (09/10/2024 8:38 AM CDT) 09/10/2024 8:38 AM CDT Narrative [facility] - 09/10/2024 9:14 AM CDT Vent Rate: 83 bpm RR Interval: 720 msec DC Interval: 165 msec QRS Duration: 96 msec QT Interval: 399 msec QTC Interval: 439 msec P-R-T [place]: 58 - 9 - 57 degrees IMPRESSION: SINUS RHYTHM POSSIBLE LEFT ATRIAL ENLARGEMENT [-0.1mV P-WAVE IN V1/V2] MINIMAL ST DEPRESSION [0.025+ mV ST DEPRESSION] BORDERLINE ECG Electronically Signed By: Lawrence Kaplan MD Miller Damon MD ECG ORDERABLES Final Result Performing Organization Address City/[facility]/ZIP Co de Phone Number [facility] from Last 3 Months Insurance [facility] Advance Directives For more information, please contact: [phone] * Full Code (Latest Code Status on File) Date Activated Date Inactivated Comments 09/10/2024 11:34 AM 09/13/2024 5:57 PM Care Teams Mixing And Dispensing Supervisor Relationship Specialty Start Date End Date Diamante Abraham NP [facility] [place] [address] PCP - General Nurse Practitioner 09/10/24 [place] [id number] GUILLERMINA FARIAS [facility] [address] [place] [address] Consulting Physician Neurology 09/13/24
[2024-09-27 18:30] LABS: Basophils Absolute Auto 0.1 K/mm3 (0.0-0.1); Basophils Percent Auto 0.5 % (0.2-1.2); Eosinophils Percent Auto 0.3 % (0-4.4); Hematocrit 47.7 % (37.0-47.0); Hemoglobin 15.3 g/dL (12.0-15.0); Immature Granulocyte Absolute 0.04 K/mm3 (0.00-0.031); Immature Granulocyte Percent A 0.3 % (0-0.5); Immature Platelet Fraction Pct 9.4 % (0.9-11.2); Lymphocytes Absolute Auto 3.44 K/mm3 (0.9-3.2); Mean Corpuscular HGB Conc 32.1 g/dl (32-36); Mean Corpuscular Hemoglobin 31.4 pg (26-34); Mean Corpuscular Volume 97.7 fl (80-100); Mean Platelet Volume 13.6 fl (7.4-10.4); Monocytes Absolute Auto 1.6 K/mm3 (0.1-0.6); Monocytes Percent Auto 11.7 % (2.6-8.5); Neutrophils Absolute Auto 8.1 K/mm3 (1.3-6.7); Neutrophils Percent Auto 61.2 % (45.5-73.1); Platelet Count Result 219 k/mm3 (150-375); Red Blood Count 4.88 M/mm3 (4.2-5.4); Red Cell Distribution Width 12.1 % (11.5-14.5); White Blood Count 13.2 K/mm3 (4.5-10.0)
== END 2024-09-27 11:00 | disposition home or self-care (01) ==
LOC: ANHBWCLAB 11:00
PROVIDERS: PCP Nurse Practitioner Adult Health; Visit Provider Nurse Practitioner Adult Health
DX: D72.829 Elevated white blood cell count, unspecified (principal)
CPT/HCPCS: 36415; 85025; 85055

== ENCOUNTER 2024-09-29 15:43 | Outpatient (CLI) | payer OTHER, SELFPAY ==
--- NOTE | ~2024-09-29 | MM_ITS ---
EXAMINATION: MM screening em[facility] BI w mayela HISTORY: Screening mammogram, family history of breast cancer in her mother. TECHNIQUE: Craniocaudal and mediolateral oblique 3-D tomosynthesis images were obtained and synthetic 2-D images were generated. CAD analysis was submitted and interpreted. COMPARISON: 03/10/2023, 12/25/2021, 09/20/2020, 07/06/2019 BREAST PARENCHYMAL COMPOSITION:Not Dense. There are scattered areas of fibroglandular density. FINDINGS: No suspicious mass, calcification, or architectural distortion are identified in either parag ast to suggest malignancy. There has been no suspicious interval change. IMPRESSION: No mammographic evidence of malignancy. Recommend routine screening mammography in one year. BI-RADS Category 1: Negative Reviewed, dictated and finalized at location .
== END 2024-09-29 15:44 | disposition home or self-care (01) ==
LOC: MICIMG 15:44
PROVIDERS: PCP Nurse Practitioner Adult Health; Visit Provider Nurse Practitioner
DX: Z12.31 Encounter for screening mammogram for malignant neoplasm of breast (principal)
CPT/HCPCS: 77063; 77067